=== PATIENT | male | born 1945 | race Caucasian/White ===

== ENCOUNTER → 2018-07-05 06:35 | Day surgery (SDC) | payer MEDICARE, SELFPAY ==
[2018-07-05 06:57] VITALS: BMI 33.7
--- NOTE | 2018-07-05 08:48 | CL.D_ITS ---
Patient Name: SVITLANA PARKER Study Date: 07/05/2018 Performing: Darinel Valiente MD Ht: 70 inches 177.8 cm : 1945 Wt: 234.99 lbs 106.59 kg Age: 73 Gender: male BSA: 2.24 PROCEDURE(S) PERFORMED [id number] CLINICAL PROFILE AND INDICATIONS Indications: Suspected CAD, Valvular Disease Heart Failure: None Stress/Imaging Date: 06/29/2018 CAD Presentations: Symptom unlikely to be ischemic. CONCLUSIONS Non obstructive coronary arteries RECOMMENDATIONS Medical therapy DESCRIPTION OF PROCEDURE The patient arrived to the procedure lab. The risks and benefits of the procedure as well as a full d escription of our services here and current unavailability of surgical backup were fully explained to the patient and/or their significant other prior to the catheterization. The Timeout was completed, verifying the correct patient and procedure. The patient's procedural site was prepped and draped in the usual fashion. Local anesthetic was given subcutaneously to right groin region with Lidocaine 2%. Using a modified Seldinger technique, arterial access was obtained via the right femoral artery, a 5 Fr sheath was inserted. Left Coronary Artery selective angiography was performed in multiple views u sing a 5 Fr. JL 5 catheter. Right Coronary Artery selective angiography was then performed in multipl e views using a 5 Fr. 3DRC (Abilio) catheter.Contrast was injected through the sheath and the Right Iliac and Femoral artery were assessed for possible closure device.The arterial sheath was pulled and a Mynx closure device was deployed for hemostasis CORONARY ANGIOGRAPHY DOMINANCE: Left Dominant LEFT HEART ASSESSMENT Left Ventricular Ejection Fraction: by Echo 74 % LEFT MAIN: Angiographically normal LEFT ANTERIOR DESCENDING ARTERY: Mild luminal irregularities less than 30% CIRCUMFLEX ARTERY: Mild luminal irregularities less than 30% RAMUS: No significant disease noted RIGHT CORONARY ARTERY: No significant disease noted VALVE FINDINGS: Bioprosthetic COMPLICATIONS No Complications PROCEDURE MEDICATIONS Versed 1 mg IV Versed 1 mg IV Oxygen: 2 L/min via nasal cannula SUMMARY OF HEMODYNAMIC DATA Time AIR REST ECG 06:57:09 AO 152/81 (104) SA 08:10:55 Signed By Darinel Valiente MD On 07/05/2018 08:47:43 Darinel Valiente MD
--- NOTE | 2018-07-05 09:40 | ECHOCS_ITS ---
Reason For Study: Aortic valve replacement, CAD, ABN stress Procedure This was a 2D Doppler, Color Flow transthoracic echocardiogram. The study was technically difficult. Contrast injection was performed. Exam performed portable in patient room. Left Ventricle Normal LV size. Left ventricular systolic function is normal. The estimated ejection fraction is 70 %. Stage 1 diastolic dysfunction. No regional wall motion abnormalities noted. Right Ventricle Normal RV size. Normal systolic function. Atria The left atrium is mildly enlarged. The right atrium is mildly enlarged. Mitral Valve Normal mitral valve. Tricuspid Valve Normal tricuspid valve. Mild to moderate (1-2+) tricuspid valve insufficiency. Pulmonary artery systolic pressure is 43 mmHg. Aortic Valve Peak aortic valve gradient 41 mmHg. Mean aortic valve gradient 24 mmHg. Calculated aortic valve area (continuity equation) is 1.2 cm2. Bioprosthetic aortic valve. Pulmonic Valve Normal pulmonic valve. Great Vessels Normal aortic root. The pulmonary artery is normal size. Normal inferior vena cava. Pericardium/Pleural No pericardial effusion. Medication Diluted definity 3.0ml given slow IV push to enhance endocardial definition. MMode/2D Measurements & Calculations LVIDd: 4.8 cm IVSd: 1.1 cm LVOT diam: 2.2 cm LVIDs: 2.8 cm LVPWd: 1.2 cm FS: 42.7 % LVOT area: 3.8 cm2 Ao root diam: 3.7 cm LAV(MOD-bp): 72.3 ml LA A4 area: 22.0 cm2 LAV(MOD-bp) Indexed: 32.3 ml/m2 LAV(MOD-sp2): 77.2 ml LAV(MOD-sp4): 64.3 ml LA dimension(2D): 5.0 cm RA A4 area: 23.1 cm2 Doppler Measurements & Calculations MV E max eryn: 130.6 cm/sec Ao V2 max: 321.8 cm/sec LV V1 max: 105.6 cm/sec Ao max P.4 mmHg LV V1 max P.5 mmHg Ao V2 mean: 237.7 cm/sec LV V1 mean P.5 mmHg Ao mean P.4 mmHg LV V1 mean: 75.1 cm/sec Ao V2 VTI: 80.8 cm LV V1 VTI: 26.2 cm JACKELINE(I,D): 1.2 cm2 JACKELINE(V,D): 1.2 cm2 SV(LVOT): 98.6 ml PA V2 max: 107.3 cm/sec TR max eryn: 314.3 cm/sec TR max P.5 mmHg Interpretation Summary Normal LV size. Left ventricular systolic function is normal. The estimated ejection fraction is 70 %. Stage 1 diastolic dysfunction. Mild to moderate (1-2+) tricuspid valve insufficiency. Mean aortic valve gradient 24 mmHg. Bioprosthetic aortic valve. Calculated aortic valve area (continuity equation) is 1.2 cm2. Contrast injection was performed. Ordering Physician: Darinel Valiente Referring Physician: Phoebe Beltran Performed By: Dorota Sabillon, RDCS, RVT
== END ==
PROVIDERS: Family Provider Internal Medicine; PCP Internal Medicine; Referring Provider Internal Medicine Cardiovascular Disease; Visit Provider Internal Medicine Cardiovascular Disease
DX: I25.10 Atherosclerotic heart disease of native coronary artery without angina pectoris (principal); E11.9 Type 2 diabetes mellitus without complications; E78.5 Hyperlipidemia, unspecified; I10 Essential (primary) hypertension; Q23.1 Congenital insufficiency of aortic valve; I50.30 Unspecified diastolic (congestive) heart failure
CPT/HCPCS: 93306; 93454; 99152; 99153; C1760; J7040; Q9957; A4216; C1769; C8929; Q9967

== ENCOUNTER → 2018-07-17 | Outpatient (CLI) | payer MEDICARE, SELFPAY ==
[2018-07-12 13:10] VITALS: BMI 34.2
== END | disposition home or self-care (01) ==
LOC: PSN 12:38
PROVIDERS: Family Provider Internal Medicine; PCP Internal Medicine; Referring Provider Internal Medicine Cardiovascular Disease; Visit Provider Internal Medicine Cardiovascular Disease
DX: I48.1 Persistent atrial fibrillation (principal)
CPT/HCPCS: 93225; 93226

== ENCOUNTER 2018-08-24 09:12 | Observation (INO) | payer MEDICARE, SELFPAY ==
[2018-07-12 13:10] VITALS: BMI 34.2
[2018-08-14 12:26] VITALS: BMI 34.2
--- NOTE | 2018-08-14 12:34 | RAD_ITS ---
STUDY: X-RAY CHEST REASON FOR EXAM: Male, 73 years old. Chronic atrial fibrillation. TECHNIQUE: PA and lateral views of the chest. COMPARISON: None. FINDINGS: Mild elevation of the right hemidiaphragm. Minimal increased markings at the left lung base suggestive of linear scarring and/or atelectasis. There is no demonstrated pleural abnormality. Sternal cerclage wires are present from a prior sternotomy. Prior mitral valve replacement. Normal mediastinum and matt. Normal visualized pulmonary arteries. There is atherosclerotic tortuosity of the aortic arch and descending thoracic aorta. There are diffuse degenerative changes of the visualized thoracic spine. Normal visualized ribs, clavicles, and shoulders. There is no demonstrated abnormality of the visualized soft tissue structures of the upper abdomen. RAD/Chest PA and Lateral IMPRESSION: Mild increased markings at the left lung base suggestive of linear atelectasis and/or scarring. Electronically Signed: Sanford Benitez, at 15:54 EDT , Service support ,
[2018-08-14 13:20] LABS: Hematocrit 41.9 % (40-54); Hemoglobin 13.9 g/dl (13.0-16.5); Mean Corp Hgb Conc 33.2 g/gl (32-36); Mean Corpuscular Hgb 32.4 pg (27.0-32.0); Mean Corpuscular Volume 97.7 fL (80-94); Mean Platelet Vol. 9.8 fl (6.2-12.0); Platelet Count 195 K/mm3 (150-450); RBC Distribution Width CV 13.4 % (11.6-14.6); RBC Distribution Width SD 47.5 fl (35.1-43.9); Red Blood Count 4.29 M/mm3 (4.6-6.2); White Blood Count 6.7 K/mm3 (4.4-11.0)
[2018-08-14 13:21] LABS: Scan Indicated on CBC? Y/N NO
[2018-08-14 13:25] LABS: Color, Urine Yellow (Yellow); Glucose, Dipstick Normal (Normal); Ketone-Dipstick Negative (Negative); Leukocyte Esterase-Dipstick Negative /ul (Negative); Nitrite-Dipstick Negative (Negative); Occult Blood-Urine Negative /ul (Negative); Protein-Dipstick Negative (Negative); Urine Bilirubin Dipstick Negative (Negative); Urine Clarity Clear (Clear); Urine Urobilinogen Normal (Normal)
[2018-08-14 13:44] LABS: Mucous, Urine 0 SEEN /hpf (<or=2+); Red Blood Cells-Urine 0 SEEN /hpf (0-5); Squamous Epithelial Cells - UA 0 SEEN /hpf (0-5); White Blood Cells 0 SEEN /hpf (0-5)
[2018-08-14 13:45] LABS: Bacteria RARE /hpf (None Seen)
[2018-08-14 13:48] LABS: International Normalized Ratio 1.4; Prothrombin Time (Protime)PT. 16.7 SECONDS (11.7-14.9)
[2018-08-14 14:08] LABS: Anion Gap 9 (5-15); BUN 12 mg/dL (7-18); BUN/Creat Ratio 10.1 RATIO (10-20); Calcium,Total 9.1 mg/dL (8.5-10.1); Chloride 102 mmol/L (98-107); Creatinine, Serum 1.19 mg/dL (0.70-1.30); EST Glomerular Filtration Rate 64 mL/min (>60); Est Glom Filt Rate - Afr Amer 77 mL/min (>60); Glucose 121 mg/dL (74-106); Potassium 4.1 mmol/L (3.5-5.1); Sodium Level 142 mmol/L (136-145)
[2018-08-22 08:36] VITALS: BMI 31.7
[2018-08-23] VITALS (15 sets, daily range): BP systolic 141–160; BP diastolic 79–101; PULSE 49–59; RESP 15–18; TEMP 36.1–37.4; O2SAT 95–99
--- NOTE | 2018-08-23 11:02 | PCM.HP.BLA ---
History and Physical Date of Admission: 08/23/18 [facility] History of Present Illness Details: This is a pleasant 73-year-old man with a history of minimal coronary artery disease, chronic persistent atrial fibrillation, and aortic valve replacement in 2009. He was recently referred to us for shortness of breath and underwent a cardiac catheterization on 07/05/2018 which demonstrated nonobstructive coronary arteries. An echocardiogram was performed on 07/05/2018 with demonstrated an ejection fraction of 70%, 1-2+ tricuspid regurgitation, stable bioprosthetic aortic valve with a mean gradient of 24 mmHg. The pulmonary systolic pressure was calculated at 43 mmHg. He denies chest, arm, jaw, or neck discomfort. His exercise tolerance is stable. He denies SOB. He denies symptoms of palpitations, lightheadedness, dizziness, near syncope, or syncopal episodes. He denies edema or claudication issues. He denies orthopnea, PND, fever, chills, blood in urine, blood in stool, myalgia, or unexplainable fatigue. Intake Intake Visit Reasons: PPM Insertion Allergies oxycodone HCl [From Percocet] Allergy (Verified 08/14/18 09:11) Other Vital Signs: See EMR [facility] Medical History (Updated 08/23/18 @ 10:53 by LARON Gomez) Bradycardia (Chronic) Sick sinus syndrome (Chronic) Secondary pulmonary arterial hypertension (Chronic) Chronic diastolic (congestive) heart failure (Chronic) Persistent atrial fibrillation (Chronic) Atherosclerosis of coronary artery of pechanga heart without angina pectoris (Chronic) Bicuspid aortic valve (Resolved) Non-rheumatic aortic stenosis (Chronic) Essential (primary) hypertension (Chronic) Hyperlipidemia (Chronic) Osteoarthritis (Chronic) Type 2 diabetes mellitus (Chronic) Surgical History (Updated 07/05/18 @ 17:37 by Vickie Gore) H/O aortic valve replacement (Resolved 01/25/10) History of appendectomy (Resolved) History of hand surgery (Resolved) History of left heart catheterization (Resolved 07/05/18) History of tonsillectomy and adenoidectomy (Resolved) Family History (Updated 06/29/18 @ 16:46 by Vickie Gore) Mother CVA (cerebral vascular accident) Diabetes Social History Smoking Status: Never smoker Assessment & Plan 1. Atrial fibrillation and flutter I48.91; I48.92 slow ventricular response Plan - LARON Gomez His 24-hour Holter monitor from June 2018 showed atrial fib/flutter at 100% of total scan. He continues to have slow ventricular rate with average heart rate noted to be 49 bpm after discontinuing beta-nhung. Because of the low ventricular rate, he will proceed with Micra pacemaker insertion. Most recent echocardiogram from June 2018 showed ejection fraction of 70%. 2. Sick sinus syndrome I49.5 Plan - LARON Gomez He will proceed with Micra pacemaker insertion. 3. Bradycardia R00.1 Plan - LARON Gomez His beta-nhung has been discontinued. Due to ongoing symptomatic bradycardia, he will proceed with Micra pacemaker insertion. 4. Atherosclerosis of pe[place]anga coronary artery of [place] heart without angina pectoris I25.10 Plan - LARON Gomez His most recent heart catheterization showed nonobstructive/mild coronary artery disease. Patient denies any chest pain, arm pain, jaw pain, neck pain, shortness of breather, or fatigue suggestive of angina at this time. We will continue to monitor. We will not make any medication regimen changes and will continue risk factor modification. 5. H/O aortic valve replacement Z95.2 AVR w/ ARAVIND-AVILA PERIMOUNT 23MM PERICARDIAL AORTIC BIOPROSTHESIS 01/25/10 Plan - LARON Gomez This appears stable based on previous echocardiogram completed in June 2018. Mean aortic valve gradient was noted with 24 mmHg and calculated aortic valve area was noted be 1.27 square. We will continue to monitor this through history, exam, and repeat echocardiogram as needed. 6. Essential (primary) hypertension I10 Plan - LARON Gomez Patient's blood pressure is well-controlled. We will continue to monitor. We will not make any medication regimen changes. Plan Detail Additional Comments - LARON Gomez Thank you for allowing us to participate in the patients plan of care, if you have any questions please do not hesitate to call. This note was generated using a voice recognition system and there may be incorrect words, spelling or punctuation that were not noted when reviewing the office note prior to saving. Coding Diagnoses Atrial fibrillation and flutter I48.91; I48.92 Sick sinus syndrome I49.5 Bradycardia R00.1 Atherosclerosis of pe[place] coronary artery of [place] heart without angina pectoris I25.10 Coronary Disease-Associated Artery/Lesion type: [place] artery H/O aortic valve replacement Z95.2 Essential (primary) hypertension I10 Coding Diagnoses Atrial fibrillation and flutter I48.91; I48.92 Sick sinus syndrome I49.5 Bradycardia R00.1 Atherosclerosis of [place] coronary artery of [place] heart without angina pectoris I25.10 Coronary Disease-Associated Artery/Lesion type: [place] artery H/O aortic valve replacement Z95.2 Essential (primary) hypertension I10 Supplemental Info Supplemental Information Heart catheterization from 07/05/2018: CORONARY ANGIOGRAPHY DOMINANCE: Left Dominant LEFT HEART ASSESSMENT Left Ventricular Ejection Fraction: by Echo 74 % LEFT MAIN: Angiographically normal LEFT ANTERIOR DESCENDING ARTERY: Mild luminal irregularities less than 30% CIRCUMFLEX ARTERY: Mild luminal irregularities less than 30% RAMUS: No significant disease noted RIGHT CORONARY ARTERY: No significant disease noted VALVE FINDINGS: Bioprosthetic Echocardiogram from 07/05/2018: Interpretation Summary Normal LV size. Left ventricular systolic function is normal. The estimated ejection fraction is 70 %. Stage 1 diastolic dysfunction. Mild to moderate (1-2+) tricuspid valve insufficiency. Mean aortic valve gradient 24 mmHg. Bioprosthetic aortic valve. Calculated aortic valve area (continuity equation) is 1.2 cm2. Contrast injection was performed. 24-hour Holter monitor from 07/17/2018: Average heart rate of 49 bpm in atrial flutter, minimum heart rate of 28 bpm and atrial fib/flutter, maximum heart rate of 1 9 9 bpm and atrial fib/flutter, ventricular ectopy comprising of 1.4% of total QRS complexes, longest R to R interval 2.4 seconds, 100% of scan of atrial fibrillation/flutter, and no ventricular tachycardia noted. Diagnostics Electrocardiogram 08/14/18 Echocardiogram 07/05/18 Pacemaker Check 08/14/18 Cardiac Catheterization 07/05/18 Chest X-Ray 08/14/18
--- NOTE | 2018-08-23 16:35 | PCM.OP.PRO ---
Problem List (1) Sick sinus syndrome Status: Chronic (2) Atrial fibrillation and flutter Status: Chronic Comment: slow ventricular response Procedure Report Date of Procedure: 08/23/18 Implantation of a single-chamber Micra device. Indication: Atrial fibrillation with a slow ventricular response rate. Procedure: Patient was brought to the cardiac catheterization lab in the postabsorptive nonsedated state. After informed consent was obtained 1% Xylocaine was used to anesthetize the right femoral area. The patient was given sedation with Versed as well as fentanyl. Using ultrasound guidance the right femoral vein was accessed. Serial dilation was performed after a 7 Icelandic sheath was placed. A [employer] dilator was then used to dilate the access site. The equipment was then prepared and a large 27 Icelandic sheath with a silicone oil coated dilator was then introduced with a wire positioned in the superior vena cava. The device equipment on the 105 cm long catheter was then inserted after 5000 units of intravenous heparin was administered and continuous heparinized saline flush through the device port. Under fluoroscopic guidance the micra delivery catheter containing the micra-pacing capsule was advanced under fluoroscopic control to the right ventricular septum. Contrast was injected to ascertain adequate position. The micro device was then deployed. Device measurements were then obtained with an R wave detected at 18.3 mV, pacing impedance of 760 ohms. The pacing threshold was 0.5 V at 0.24 ms. The tether was then cut and the entire delivery device removed. A figure of 8 over the entry site was used to secure hemostasis. Patient tolerated the procedure well. The patient was transferred out of the catheterization lab in stable condition. Conclusion: Successful implantation of a single-chamber transcatheter Micra-pacing system.
[2018-08-23 18:21] LABS: Bedside Glucose 89 mg/dL (70-110)
[2018-08-23] MEDS: fentaNYL 100 MCG/2 ML Ampul 25 MCG IV (19:07)
[2018-08-23] MEDS: 0.9% NaCl Peripheral Flush Adult/Peds IV (19:08)
[2018-08-23] MEDS: Atorvastatin Calcium 20 MG Tablet PO (21:07)
[2018-08-23] MEDS: Lisinopril 20 MG Tablet PO (21:07)
[2018-08-24 03:00] VITALS: PULSE 49
[2018-08-24 03:49] VITALS: BP 141/82; PULSE 50; RESP 18; TEMP 36.6; O2SAT 94
[2018-08-24 07:26] VITALS: PULSE 50
[2018-08-24 08:12] VITALS: BP 143/84; PULSE 50; RESP 17; TEMP 36.6; O2SAT 97
[2018-08-24] MEDS: Lisinopril 20 MG Tablet PO (08:17)
[2018-08-24] MEDS: Furosemide 40 MG Tablet PO (08:17)
[2018-08-24] MEDS: Aspirin E.C. 81 MG Tablet PO (08:17)
--- NOTE | 2018-08-24 09:13 | DCINST_ITS ---
Discharge Diet: No Restrictions - You may continue your normal diet. Lifting Restrictions: 10 pounds and also avoid any pushing or pulling for 3 days after your test. Additional Activity Instructions:: You must have someone drive you home. Do not drive until instructed by your doctor. You must have someone stay with you all night after your test. Rest in bed or on the couch until the next morning. Limit the number of times you go up and down stairs the day of your test. Apply pressure to the puncture site if you sneeze or cough. Call your doctor if your incision/area has: Increased Pain/ Swelling, Increased Redness, Foul Smelling Discharge, Swelling at the incision site Call your doctor if you observe: Fever of 101 or Higher Additional Dressing/Incision Instructions:: Keep the dressing (bandage) on until the next morning. You may then shower, but do not take a tub bath for 5 days after your test. It is normal to have some tenderness and discomfort at the puncture site. Sometimes bruising also occurs. However, if pain, numbness, or coldness occurs below the puncture site (in your leg, toes, arms or fingers) call your doctor at once. You may have a small, marble sized knot at the puncture site. This is normal. Do not rub it. It will go away in 4-6 weeks. Bleeding can occur from the area where the puncture was done. Blood may spurt or drip from the site. If blood spurts, apply pressure right away to stop bleeding and call 911. Although rare, bleeding into the tissue (hematoma) can also occur. If this happens, a large, firm area goose egg under the skin will appear. If any of these occur, lie down as flat as you can and have someone apply firm pressure to the cath site with a gauze pad or a clean washcloth for 10-15 minutes. Call 911 or go to the Emergency Department. Allergies/Adverse Reactions: Allergies oxycodone HCl [From Percocet] Allergy (Verified 08/14/18 09:11) Other GET SWEATY, DON'T FEEL GOOD Medications to take at Discharge apixaban 5 mg tablet 5 mg PO BID 06/29/18 aspirin 81 mg tablet,delayed release 81 mg PO DAILY 06/29/18 atorvastatin 20 mg tablet 20 mg PO QHS 90 Days #90 tab 06/29/18 sildenafil (antihypertensive) 20 mg tablet 20 mg PO DAILY tab 06/29/18 furosemide 40 mg tablet 40 mg PO DAILY #60 tab 07/12/18 lisinopril 20 mg tablet 20 mg PO BID 90 Days #180 tab 07/25/18 metformin ER 500 mg tablet,extended release 24 hr 500 mg PO BID 90 Days #180 tab 08/14/18 omeprazole 20 mg capsule,delayed release 20 mg PO DAILY PRN 90 Days #90 cap 08/14/18 Primary Care Physician: Phoebe Beltran MD [Primary Care Provider] - Test Results: Test results from this visit will be discussed in further detail at your follow- up appointment, if applicable. Please Follow Up With: [facility] 09/03/2018 at 1:30 pm Proposed Discharge Date: 08/24/18 Cardiac Rehabilitation Info Cardiac Rehabilitation Program Information: Cardiac Rehabilitation is important for patients like you who are recovering from a heart problem. Cardiac rehabilitation programs are recognized as integral to the continued care of the patient with coronary heart disease. The cardiac rehabilitation program is designed to optimize a patient's physical, psychological, and social functioning. Health resident caregiver work in cardiac rehabilitation programs and assist you with getting the treatments you need to get stronger and healthier - like exercise, healthy eating habits, and medications. Cardiac rehabilitation has been show to help people with heart problems live longer and have better life enjoyment than people who do not go to cardiac rehabilitation. Please contact the Cardiac Rehabilitation Program at [facility] at in two weeks if you have not heard from them.
== END 2018-08-24 09:14 | disposition home or self-care (01) ==
LOC: CLSP 10:56 → PCU 08-27 09:19
PROVIDERS: Admitting Provider Internal Medicine Cardiovascular Disease; Family Provider Internal Medicine; PCP Internal Medicine; Referring Provider Internal Medicine Cardiovascular Disease; Visit Provider Internal Medicine Cardiovascular Disease
DX: Z45.018 Encounter for adjustment and management of other part of cardiac pacemaker (principal); I48.92 Unspecified atrial flutter; I48.2 Chronic atrial fibrillation; I49.5 Sick sinus syndrome; I25.10 Atherosclerotic heart disease of native coronary artery without angina pectoris; I48.1 Persistent atrial fibrillation; E78.5 Hyperlipidemia, unspecified; E11.9 Type 2 diabetes mellitus without complications; M19.90 Unspecified osteoarthritis, unspecified site; I11.0 Hypertensive heart disease with heart failure; I50.32 Chronic diastolic (congestive) heart failure; I27.20 Pulmonary hypertension, unspecified; Z95.2 Presence of prosthetic heart valve; Z79.899 Other long term (current) drug therapy; Z79.82 Long term (current) use of aspirin; Z79.01 Long term (current) use of anticoagulants; Z79.84 Long term (current) use of oral hypoglycemic drugs
CPT/HCPCS: 33274; 36415; 71046; 76937; 80048; 81001; 82962; 85027; 85610; 96374; 99152; 99153; 99218; C1894; J7040; Q9967; A4216; C1769; G0378; G0379

== ENCOUNTER 2018-12-02 02:17 | Emergency (ER) | payer MEDICARE, SELFPAY ==
[2018-11-15 13:16] VITALS: BMI 32.7
[2018-12-02 02:18] VITALS: BP 149/105; PULSE 63; RESP 18; TEMP 37; O2SAT 98; BMI 34.3
--- NOTE | 2018-12-02 02:19 | CT_ITS ---
HISTORY: FALL,HEMATOMA AND LACERATION TO RT POSTERIOR TOP OF HEAD,ELEVATED BP,TAKES BLOOD THINNER HX:HTN,DIABETES,A-FIB,HLD,PACEMAKER EXAMINATION: CT Head or Brain W/O IV Contrast TECHNIQUE: Multiple axial images were obtained of the head without intravenous contrast. A radiation dose optimization technique was used for this scan. IV Contrast dosage and agent: None. COMPARISON: None FINDINGS: Giant cisterna magna, a developmental variant. No hydrocephalus. Moderate cerebral cortical atrophy. No intracranial mass, hemorrhage, or acute intracranial abnormality. No suspicious extra-axial fluid collection. Carotid and vertebrobasilar atherosclerotic calcifications. The calvarium appears intact. No fracture seen. Surgical dressing in place at the right parietal scalp. As visualized, the mastoids are clear. Pansinusitis with paranasal sinus mucosal thickening. CT/Brain/Head without Contrast IMPRESSION: 1. Negative for intracranial hemorrhage or acute intracranial disease. 2. Moderate cerebral cortical atrophy. 3. Pansinusitis. Individualized dose optimization techniques were used for this CT. at 0300 Reported and signed by: Savage Romero MD Electronically Signed: Savage Romero, at 2:59 EDT Tel , Service support ,
[2018-12-02 02:21] VITALS: O2SAT 98
--- NOTE | 2018-12-02 02:21 | ED.VIS.GEN ---
History of Present Illness Chief Complaint: Fall Informant: Patient Onset: Today Context: Gradual Onset Timing: Continuous Current Severity: Mild Maximum Severity: Mild Narrative: The patient presents to the emergency department with head trauma. He states he was watching the [employer] game [employer]. He has been drinking. He lost his balance and fell. He struck his head but does not think he lost consciousness. He did suffer a laceration to the right scalp. He is on Eliquis for history of atrial fibrillation. He denies nausea or vomiting. He denies other injury. He is otherwise been in his normal state of health. Prior similar symptoms: No Recent Illness/Hospitalization: No Past Medical History - Allergies and Home Meds Allergies/Adverse Reactions: Allergies oxycodone HCl [From Percocet] Allergy (Verified 12/02/18 02:21) Other GET SWEATY, DON'T FEEL GOOD Primary Care Physician: Phoebe Beltran MD [Primary Care Provider] - 10 Day for suture removal Prior records reviewed: Yes Past Medical History: - - A. fib on anticoagulants Smoking Status: Never smoker Review of Systems General: Denies: Chills, Fever, Sweats Eyes: Denies: Visual changes - bilaterally, Diplopia ENT: Denies: Rhinorrhea, Sore throat Cardiovascular: Denies: Chest pain, Palpitations Respiratory: Denies: Dyspnea, Cough, Dyspnea on exertion Gastrointestinal: Denies: Abdominal pain, Nausea, Vomiting, Diarrhea, Melena, Hematochezia Genitourinary: Denies: Dysuria, Hematuria, Frequency Musculoskeletal: Denies: Back pain, Extremity Pain Skin: Denies: Rash, Wounds Neurological: Denies: Headache, Weakness, Numbness Physical Exam Vital Signs/Narrative: Vital Signs Temp Pulse Resp BP Pulse Ox 12/02/18 02:18 98.6 F 63 18 149/105 H 98 Inital Vital Signs reviewed: Yes General: Well nourished, Well developed, No Acute Distress Head: Normocephalic, Trauma - Patient has a 1 cm laceration on the right parietal area. No step-off. Eyes: Perrl, EOMI ENT: Moist mucous membranes, No rhinorrhea Neck: Supple, Nontender Cardiovascular: Regular rate, Regular rhythm, No murmurs Respiratory: No distress, CTA bilaterally, Chest nontender Abdomen: Soft, Nontender, Nondistended, Normal bowel sounds Back: Nontender, Normal Inspection Extremities: Nontender, No edema Skin: Normal color, No rash Neurological: Alert, Oriented x3, Cranial nerves II-XII grossly intact, Normal Strength, Normal Sensation Psychological: Normal affect, Normal Mood Diagnostic/Tx/Re-eval Clinical Impression(s) from Imaging Studies Brain CT 12/02/18 02:19 IMPRESSION: 1. Negative for intracranial hemorrhage or acute intracranial disease. 2. Moderate cerebral cortical atrophy. 3. Pansinusitis. Individualized dose optimization techniques were used for this CT. at 0300 Reported and signed by: Savage Romero MD Electronically Signed: Savage Romero, at 2:59 EDT Tel , Service support , - Medical Decision Making Procedure note: Let was applied topically. 3 cc of lidocaine with epinephrine was injected locally. The wound was irrigated and cleaned copiously with chlorhexidine. There was no gross contamination. The wound edges were well approximated. The wound was closed with 3 kaitlin. The patient tolerated this without issue. The patient presented to the emergency department after a fall. He did strike his head and is on Eliquis. I did obtain a CT which showed no evidence of bleeding or fracture. His wound was closed with kaitlin. He tolerated this without issue. He has a normal neurologic examination. He is resting comfortably. He is a steady gait. At this point, the patient be discharged home. Impression 1. 2 cm scalp laceration with staple repair ED Disposition - Plan for ED Patient: Instructions: LACERATION, Scalp Referrals: Phoebe Beltran MD [Primary Care Provider] - 10 Day for suture removal
[2018-12-02] MEDS: Lidocaine/Epi/Tetracaine 50 ML 1 APPLIC TOPICAL (02:28)
[2018-12-02 02:44] VITALS: RESP 18
== END 2018-12-02 04:05 | disposition home or self-care (01) ==
PROVIDERS: Emergency Provider Emergency Medicine; Family Provider Internal Medicine; PCP Internal Medicine
DX: S01.01XA Laceration without foreign body of scalp, initial encounter (principal); I48.91 Unspecified atrial fibrillation; Z79.02 Long term (current) use of antithrombotics/antiplatelets; W18.30XA Fall on same level, unspecified, initial encounter; Y93.89 Activity, other specified; Y92.89 Other specified places as the place of occurrence of the external cause; Y99.8 Other external cause status
CPT/HCPCS: 12001; 70450; 99285

== ENCOUNTER → 2020-03-26 10:24 | Outpatient (CLI) | payer MEDICARE, SELFPAY ==
[2020-03-26 08:36] VITALS: BMI 33.3
[2020-03-26 11:42] LABS: AST(SGOT) 29 U/L (15-37); Alanine Aminotransfer ALT/SGPT 46 U/L (16-61); Albumin, Serum 3.6 g/dL (3.2-5.0); Alkaline Phosphatase 57 U/L (45-117); Anion Gap 6 (5-15); BUN 12 mg/dL (7-18); BUN/Creat Ratio 9.8 RATIO (10-20); Bilirubin, Direct 0.16 mg/dL (0.00-0.30); Calcium,Total 9.1 mg/dL (8.5-10.1); Chloride 101 mmol/L (98-107); Cholesterol 167 mg/dL (200); Creatinine, Serum 1.22 mg/dL (0.70-1.30); EST Glomerular Filtration Rate 62 mL/min (>60); Est Glom Filt Rate - Afr Amer 75 mL/min (>60); Globulin 3.9 g/dL (2.2-4.2); Glucose 219 mg/dL (74-106); High Density Lipoprotein 51 mg/dL; Potassium 4.4 mmol/L (3.5-5.1); Protein, Total 7.5 g/dL (6.4-8.2); Sodium Level 138 mmol/L (136-145); Triglycerides 167 mg/dL; Very Low Density Lipoprotein 33 mg/dL (5-40)
== END ==
LOC: LAB 10:26 → LAB.FUTURE 10:36
PROVIDERS: PCP Internal Medicine; Referring Provider Internal Medicine Cardiovascular Disease; Visit Provider Internal Medicine Cardiovascular Disease
DX: I25.10 Atherosclerotic heart disease of native coronary artery without angina pectoris (principal); E78.5 Hyperlipidemia, unspecified; Z95.2 Presence of prosthetic heart valve
CPT/HCPCS: 36415; 80048; 80061; 80076

== ENCOUNTER → 2020-04-13 13:21 | Outpatient (CLI) | payer MEDICARE, SELFPAY ==
[2020-03-26 08:36] VITALS: BMI 33.3
--- NOTE | 2020-04-13 13:26 | ECHOCS_ITS ---
Reason For Study: Valve Replacement Eval Procedure This was a 2D Doppler, Color Flow transthoracic echocardiogram. Contrast injection was performed. Exam performed in department. Left Ventricle Normal LV size. Mild concentric left ventricular hypertrophy. Left ventricular systolic function is normal. The estimated ejection fraction is 60 %. No regional wall motion abnormalities noted. Right Ventricle Normal RV size. ICD or pacer leads identified within the right ventricle. Normal systolic function. Atria The left atrium is moderately enlarged. Normal right atrium. Mitral Valve Normal mitral valve. Tricuspid Valve Normal tricuspid valve. Mild (1+) tricuspid valve insufficiency. Pulmonary artery systolic pressure is 44 mmHg. Aortic Valve Peak aortic valve gradient 38 mmHg. Mean aortic valve gradient 23 mmHg. Bioprosthetic aortic valve. Great Vessels Normal aortic root. Pericardium/Pleural No pericardial effusion. Medication Diluted definity 3ml given slow IV push to enhance endocardial definition. MMode/2D Measurements & Calculations LVIDd: 4.5 cm IVSd: 1.6 cm LVOT diam: 2.1 cm LVIDs: 2.7 cm LVPWd: 1.2 cm LVOT area: 3.5 cm2 RVDd: 4.4 cm FS: 40.2 % Ao root diam: 3.3 cm LAV(MOD-bp): 64.6 ml LVAd ap4: 27.9 cm2 LAV(MOD-bp) Indexed: 28.9 ml/m2 EDV(MOD-sp4): 82.8 ml LAV(MOD-sp2): 42.6 ml EDV(sp4-el): 84.5 ml LAV(MOD-sp4): 86.8 ml LVAs ap4: 17.2 cm2 ESV(MOD-sp4): 35.7 ml ESV(sp4-el): 36.0 ml EF(MOD-sp4): 56.9 % EF(sp4-el): 57.4 % SV(MOD-sp4): 47.2 ml SV(sp4-el): 48.5 ml LA A4 area: 26.3 cm2 LA dimension(2D): 4.5 cm RA A4 area: 23.2 cm2 Doppler Measurements & Calculations MV E max eryn: 94.4 cm/sec Ao V2 max: 309.2 cm/sec LV V1 max: 111.2 cm/sec Ao max P.3 mmHg LV V1 max P.0 mmHg Ao V2 mean: 231.5 cm/sec LV V1 mean P.6 mmHg Ao mean P.5 mmHg LV V1 mean: 75.6 cm/sec Ao V2 VTI: 64.9 cm LV V1 VTI: 22.4 cm JACKELINE(I,D): 1.2 cm2 JACKELINE(V,D): 1.3 cm2 SV(LVOT): 78.7 ml PA V2 max: 93.4 cm/sec TR max eryn: 317.3 cm/sec TR max P.3 mmHg Interpretation Summary Normal LV size. Mild concentric left ventricular hypertrophy. Left ventricular systolic function is normal. The estimated ejection fraction is 60 %. The left atrium is moderately enlarged. Pulmonary artery systolic pressure is 44 mmHg. Mean aortic valve gradient 23 mmHg. Ordering Physician: Darinel Valiente Referring Physician: Phoebe Beltran Performed By: Milena Butler RDCS, RVT
== END ==
LOC: CVS 13:25
PROVIDERS: PCP Internal Medicine; Referring Provider Internal Medicine Cardiovascular Disease; Visit Provider Internal Medicine Cardiovascular Disease
DX: Z95.2 Presence of prosthetic heart valve (principal)
CPT/HCPCS: 93306; Q9957; A4216; C8929

== ENCOUNTER 2021-05-27 13:35 | Outpatient (CLI) | payer MEDICARE, OTHER, SELFPAY ==
--- NOTE | 2021-05-27 13:40 | ECHOCS_ITS ---
Reason For Study: DYSPNEA/SOB Procedure This was a 2D Doppler, Color Flow transthoracic echocardiogram. The study was technically difficult. Due to body habitus. Contrast injection was performed. Exam performed in department. Left Ventricle Normal LV size. Left ventricular systolic function is normal. The estimated ejection fraction is 65 %. No regional wall motion abnormalities noted. Right Ventricle Normal RV size. Normal systolic function. Atria The left atrium is moderately enlarged. The right atrium is moderately enlarged. Tricuspid Valve Normal tricuspid valve. Mild (1+) tricuspid valve insufficiency. Pulmonary artery systolic pressure is 36 mmHg. Aortic Valve Peak aortic valve gradient 36 mmHg. Mean aortic valve gradient 22 mmHg. Stable appearing bioprosthetic aortic valve apparatus. Pericardium/Pleural No pericardial effusion. Medication 22 gauge I.V. with prn adaptor inserted into right arm. Diluted definity 2.5ml given slow IV push to enhance endocardial definition. MMode/2D Measurements & Calculations LVIDd: 4.6 cm IVSd: 1.3 cm LVOT diam: 2.1 cm LVIDs: 2.9 cm LVPWd: 1.1 cm LVOT area: 3.4 cm2 RVDd: 4.1 cm FS: 37.7 % Ao root diam: 3.7 cm LAV(MOD-bp): 88.5 ml LA A4 area: 26.3 cm2 LAV(MOD-bp) Indexed: 40.9 ml/m2 LAV(MOD-sp2): 77.3 ml LAV(MOD-sp4): 95.0 ml LA dimension(2D): 4.8 cm RA A4 area: 27.6 cm2 Time Measurements MV dec time: 0.16 sec Doppler Measurements & Calculations MV E max eryn: 104.1 cm/sec Ao V2 max: 301.5 cm/sec LV V1 max: 138.6 cm/sec MV A max eryn: 33.1 cm/sec Ao max P.4 mmHg LV V1 max P.7 mmHg MV E/A: 3.1 Ao V2 mean: 225.9 cm/sec LV V1 mean P.2 mmHg Ao mean P.3 mmHg LV V1 mean: 97.5 cm/sec Ao V2 VTI: 66.2 cm LV V1 VTI: 32.4 cm JACKELINE(I,D): 1.7 cm2 JACKELINE(V,D): 1.6 cm2 SV(LVOT): 110.3 ml PA V2 max: 117.2 cm/sec TR max eryn: 285.8 cm/sec TR max P.7 mmHg ECHO/Echo Complete W/ Contrast Interpretation Summary Normal LV size. Left ventricular systolic function is normal. The estimated ejection fraction is 65 %. The left atrium is moderately enlarged. The right atrium is moderately enlarged. Mild (1+) tricuspid valve insufficiency. Pulmonary artery systolic pressure is 36 mmHg. Contrast injection was performed. Ordering Physician: Edith Hugo Referring Physician: Phoebe Beltran Performed By: Dorota Sabillon, HERBER, RVT
== END 2021-05-27 23:59 | disposition home or self-care (01) ==
LOC: CVS 13:37
PROVIDERS: PCP Internal Medicine; Referring Provider Physician Assistant Medical; Visit Provider Physician Assistant Medical
DX: I35.0 Nonrheumatic aortic (valve) stenosis (principal); R06.02 Shortness of breath
CPT/HCPCS: 93306; Q9957; A4216; C8929

== ENCOUNTER → 2021-11-08 | Outpatient (CLI) | payer MEDICARE, OTHER, SELFPAY ==
--- NOTE | 2021-11-08 14:50 | RAD_ITS ---
STUDY: X-RAY CHEST REASON FOR EXAM: Male, 76 years old. Cough TECHNIQUE: PA and lateral views of the chest. COMPARISON: 08/14/2018 FINDINGS: Status post heart valve replacement surgery. Alveolar opacity in the lower left lung consistent with left lower lobe pneumonia. Slightly elevated right hemidiaphragm which is unchanged. Normal size heart. Normal mediastinum and matt. Normal visualized pulmonary arteries. Normal visualized aortic arch and descending thoracic aorta. Normal visualized thoracic spine. Normal visualized ribs, clavicles, and shoulders. There is no demonstrated abnormality of the visualized soft tissue structures of the upper abdomen. RAD/Chest PA and Lateral IMPRESSION: Left lower lobe pneumonia. Electronically Signed: Gerber Sosa MD at 17:00 EDT ,
== END | disposition home or self-care (01) ==
LOC: RAD 14:46
PROVIDERS: PCP Internal Medicine; Referring Provider Nurse Practitioner Gerontology; Visit Provider Nurse Practitioner Gerontology
DX: R05.9 Cough, unspecified (principal)
CPT/HCPCS: 71046

== ENCOUNTER → 2021-11-11 | Outpatient (CLI) | payer MEDICARE, OTHER, SELFPAY ==
--- NOTE | 2021-11-11 08:44 | CDU_ITS ---
Reason For Study: Dizziness Rt. Velocities/BP Lt. Velocities/BP Prox CCA 46.6/10.7 cm/sec. Prox CCA 85.3/11.6 cm/sec. Mid CCA 49.4/13.5 cm/sec. Mid CCA 64.5/10.7 cm/sec. Dist CCA 42.8/11.6 cm/sec. Dist CCA 57/11.6 cm/sec. Prox ICA 42.9/13.7 cm/sec. Prox ICA 34.3/11.6 cm/sec. Mid ICA 53.6/16.6 cm/sec. Mid ICA 44.7/17.3 cm/sec. Dist ICA 65.7/23.8 cm/sec. Dist ICA 53.3/18.1 cm/sec. Rt. ICA/CCA = 1.41. Lt. ICA/CCA = 0.83. Prox ECA 35.2/9.7 cm/sec. Prox ECA 43.7/4.1 cm/sec. Rt. Vert. 37.8/11.6 cm/sec. Lt. Vert. 33.3/10.2 cm/sec. Right Extracranial There is homogeneous, smooth atherosclerotic plaque noted in the right common carotid artery. There is homogeneous, smooth atherosclerotic plaque noted in the right internal carotid artery. There is intimal thickening but no significant atherosclerotic plaque noted in the right external carotid artery. Antegrade flow is noted in the right vertebral artery. Left Extracranial There is homogeneous, smooth atherosclerotic plaque noted in the left common carotid artery. There is intimal thickening but no significant atherosclerotic plaque noted in the left internal carotid artery. There is intimal thickening but no significant atherosclerotic plaque noted in the left external carotid artery. Antegrade flow is noted in the left vertebral artery. Procedure Carotid Duplex [id number]. This is a Carotid Duplex examination using B-mode, color flow and specral Doppler. Exam performed in department. VL/Carotid Duplex Ultrasound Interpretation Summary Mild (<50%) stenosis right extracranial internal carotid. Mild (<50%) stenosis left extracranial internal carotid. Patent and antegrade vertebrals bilaterally. Ordering Physician: Claudette Farooq Referring Physician: Phoebe Beltran Performed By: Chely Connelly RVT
== END | disposition home or self-care (01) ==
LOC: CVS 08:44
PROVIDERS: PCP Internal Medicine; Referring Provider Nurse Practitioner Gerontology; Visit Provider Nurse Practitioner Gerontology
DX: I65.23 Occlusion and stenosis of bilateral carotid arteries (principal); R42 Dizziness and giddiness
CPT/HCPCS: 93880

== ENCOUNTER 2022-11-28 11:04 | Emergency (ER) | payer MEDICARE, OTHER, SELFPAY ==
[2022-11-28 11:06] VITALS: BP 178/107; PULSE 65; RESP 14; TEMP 35.9; O2SAT 100; BMI 28.3
[2022-11-28 12:13] VITALS: BP 164/105; PULSE 61; RESP 23
--- NOTE | 2022-11-28 12:37 | CT_ITS ---
STUDY: CT BRAIN WITHOUT CONTRAST REASON FOR EXAM: Male, 77 years old. Confusion. Dizziness. Recent medication changes. RADIATION DOSAGE (If Supplied By Facility): CTDIvol = ( 47.06 ) mGy, DLP = ( 907.97 ) mGycm TECHNIQUE: Transaxial CT imaging of the brain was performed without administration of intravenous contrast material. Individualized dose optimization techniques were used for this CT. COMPARISON: Comparison is made with prior study dated December 02, 2018. FINDINGS: Normal soft tissue structures. Normal calvarium. There is mild cerebral atrophy with widening of the extra-axial spaces and ventricular dilatation. There are areas of decreased attenuation within the white matter tracts of the supratentorial brain, consistent with microvascular disease changes. Normal basal ganglia and thalami. Normal brainstem. Normal cerebellum. There is no intracranial hemorrhage. There are no findings of an acute ischemic infarction. Atherosclerotic calcification of the vertebral arteries and cavernous portions of the internal carotid arteries bilaterally. Partial opacification of the maxillary sinuses bilaterally. Mucosal thickening and partial opacification of the ethmoid sinuses. CT/Brain/Head without Contrast IMPRESSION: Chronic involutional changes of the brain. Sinusitis. Electronically Signed: Sanford Benitez MD at 14:10 EDT ,
--- NOTE | 2022-11-28 12:37 | EKG12_ITS ---
Test Reason : HTN Blood Pressure : / mmHG Vent. Rate : 060 BPM Atrial Rate : 357 BPM P-R Int : 000 ms QRS Dur : 174 ms QT Int : 508 ms P-R-T Axes : 000 060 089 degrees QTc Int : 508 ms Ventricular-paced rhythm Abnormal ECG Confirmed by ISSAC VASQUEZ, OPHELIA ([id number]), video editor RENEE ELLISON ([id number]) on 12/02/2022 2:30:38 PM Referred By: ALEXA/ABRAHAN Confirmed By:OPHELIA DAVENPORT MD
[2022-11-28 12:57] LABS: Bacteria 0 SEEN /hpf (None Seen); Mucous, Urine 0 SEEN /hpf (<or=2+); Red Blood Cells-Urine 0 SEEN /hpf (0-5); Squamous Epithelial Cells - UA 0 SEEN /hpf (0-5); White Blood Cells 0 SEEN /hpf (0-5)
[2022-11-28 13:07] LABS: Color, Urine Straw (Yellow); Glucose, Dipstick Normal (Normal); Ketone-Dipstick Negative (Negative); Leukocyte Esterase-Dipstick Negative /ul (Negative); Nitrite-Dipstick Negative (Negative); Occult Blood-Urine Negative /ul (Negative); Protein-Dipstick Negative (Negative); Urine Bilirubin Dipstick Negative (Negative); Urine Clarity Clear (Clear); Urine Urobilinogen Normal (Normal)
--- NOTE | 2022-11-28 13:07 | NURSING ---
NO OLD EKGS
[2022-11-28 13:10] VITALS: BP 171/98; PULSE 62; RESP 17
[2022-11-28 13:17] LABS: Absolute Lymphocyte Count 0.88 X10^3/uL (0.83-4.51); Absolute Neutrophil Count 4.3 X10^3/uL (2.0-7.7); Basophil# 0.05 X10^3/uL; Basophil% 0.9 % (0-1); Eosinophils% 1.7 % (0-5); Hemoglobin 13.6 g/dL (13.0-16.5); Lymphocyte # 0.88 X10^3/ul (0.83-4.51); Mean Corp Hgb Conc 33.2 g/dL (32-36); Mean Corpuscular Hgb 33.8 pg (27.0-32.0); Mean Platelet Vol. 9.8 fl (6.2-12.0); Monocyte# 0.51 X10^3/uL; Monocyte% 8.7 % (0-10); NRBC Flagged by Analyzer 0 % (0-5); Neutrophil # 4.28 X10^3/uL (2.7-7.7); Neutrophil % 73.2 % (47-70); Platelet Count 163 K/mm3 (150-450); RBC Distribution Width CV 12.9 % (11.6-14.6); RBC Distribution Width SD 48.3 fl (35.1-43.9); Red Blood Count 4.02 M/mm3 (4.6-6.2); White Blood Count 5.9 K/mm3 (4.4-11.0)
[2022-11-28 13:33] LABS: AST(SGOT) 46 U/L (15-37); Alanine Aminotransfer ALT/SGPT 52 U/L (16-61); Albumin, Serum 3.6 g/dL (3.2-5.0); Alkaline Phosphatase 82 U/L (45-117); Anion Gap 7 (5-15); BUN 13 mg/dL (7-18); BUN/Creat Ratio 9.6 RATIO (10-20); Calcium,Total 8.9 mg/dL (8.5-10.1); Chloride 103 mmol/L (98-107); Creatinine, Serum 1.35 mg/dL (0.70-1.30); EST Glomerular Filtration Rate 55 mL/min (>60); Est Glom Filt Rate - Afr Amer 66 mL/min (>60); Estimated Creatinine Clearance 49.58 ml/min; Globulin 3.5 g/dL (2.2-4.2); Glucose 121 mg/dL (74-106); Lipase 41 U/L (13-75); Potassium 3.9 mmol/L (3.5-5.1); Protein, Total 7.1 g/dL (6.4-8.2); Sodium Level 142 mmol/L (136-145)
--- NOTE | 2022-11-28 14:02 | EDS_ITS ---
HPI History of Present Illness Chief Complaint: Hypertension Informant: patient Narrative Narrative: Patient is a 77-year-old male with history of bicuspid aortic valve status post repair in 2009, persistent atrial fibrillation, sick sinus syndrome status post pacemaker, diastolic heart failure, hypertension, hyperlipidemia and regular alcohol use presenting with elevated blood pressure readings as well as ongoing episodes of confusion and unsteadiness. No reported falls. 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 The following day his nurse practitioner also increased his escitalopram level. They are not sure some the symptoms are associated with these medication changes however symptoms seem to have preceded this medication changes. His significant other is at the bedside (she does not live with him) notes that he was more confused this weekend. Seems more unsteady. On Monday, 3 days ago, he states he just was not feeling well but had no specific complaints. They were going further monthly pedicures and when she pulled and he did not know where they were at which is unusual for him. Patient did have an MRI in February of this year for his memory/confusion which was fine. In addition his blood pressures been more elevated. Yesterday it was 173/100. Patient states she is otherwise quite healthy and walks 1.5 miles per day. He notes that lately has been starting to dizzy with walking. He does drink 6-7 alcoholic drinks per day and has no interest in stopping. He mixture of liquor and beer. He denies any shortness of breath, leg swelling, chest discomfort, numbness or tingling. No other complaints at this time. Currently has no physical complaints. [facility] Medical History Bicuspid aortic valve Bradycardia Chronic diastolic (congestive) heart failure COVID-19 virus detected (12/2019) Essential (primary) hypertension Hyperlipidemia Non-rheumatic aortic stenosis Nonobstructive atherosclerosis of coronary artery Osteoarthritis Persistent atrial fibrillation Secondary pulmonary arterial hypertension Sick sinus syndrome Type 2 diabetes mellitus Home Medications atorvastatin 20 mg tablet 20 mg PO QHS CHOLESTEROL 90 days #90 tabs 04/03/20 [Rx Last Taken Unknown] omeprazole 20 mg capsule,delayed release 20 mg PO DAILY PRN 05/05/21 [History Last Taken Unknown] rivaroxaban 20 mg tablet (Xarelto) 20 mg PO QPM #30 tabs 04/22/22 [Rx Last Taken Unknown] lisinopril 20 mg tablet 20 mg PO BID #180 tabs 05/23/22 [Rx Last Taken Unknown] furosemide 40 mg tablet 40 mg PO DAILY #90 tabs 07/27/22 [Rx Last Taken Unknown] fluticasone propionate 55 mcg/actuation breath activated powder inhalr 1 inh i nhalation Q12H 11/22/22 [History Last Taken Unknown] metoprolol succinate 50 mg tablet,extended release 24 hr (Toprol XL) 50 mg PO DAILY #90 tabs 11/22/22 [Rx Last Taken Unknown] sildenafil (pulm.hypertension) 20 mg tablet 20 mg PO DAILY PRN 11/22/22 [History Last Taken Unknown] amlodipine 5 mg tablet (Norvasc) 5 mg PO DAILY #21 tabs 11/28/22 [Rx Last Taken Unknown] thiamine HCl (vitamin B1) 100 mg tablet 100 mg PO DAILY #7 tabs 11/28/22 [Rx Last Taken Unknown] Allergy/AdvReac Type Severity Reaction Status Date / Time oxycodone HCl [From Percocet] Allergy Other Verified 11/28/22 11:06 Family History Mother CVA (cerebral vascular accident) Diabetes Surgical History H/O aortic valve replacement (01/25/10) History of appendectomy History of hand surgery History of left heart catheterization (07/05/18) 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) History of tonsillectomy and adenoidectomy Social History Smoking Status: Never smoker ROS ROS ED Constitutional Constitutional ED: Reports other Details: Confusion, unsteadiness ; Denies chills Eyes Eyes: Denies change in vision ENT ENT ED: Denies sore throat Cardiovascular Cardiovascular: Denies chest pain Respiratory/Chest Respiratory/Chest: Denies cough, dyspnea or dyspnea on exertion Gastrointestinal Gastrointestinal: Denies abdominal pain, nausea or vomiting Musculoskeletal Musculoskeletal: Denies arthralgias or myalgias Integumentary Denies rash Neurologic Neurologic: Denies headache(s), paresthesias or weakness Psychiatric Psychiatric: Reports anxiety; Denies depression Hematologic/Lymphatic Hematologic/Lymphatic: Reports easy bleeding and easy bruising EXAM Physical Exam Const Vital Signs: 11/28/22 11:06 11/28/22 12:05 11/28/22 12:13 Temperature 96.6 F L Temperature Source Temporal Pulse Rate 65 61 Respiratory Rate 14 23 H Respiratory Effort Normal Non-Labored Blood Pressure 178/107 H 164/105 H Blood Pressure Mean 130 124 Pulse Ox 100 Oxygen Delivery Method Room Air 11/28/22 13:10 Temperature Temperature Source Pulse Rate 62 Respiratory Rate 17 Respiratory Effort Blood Pressure 171/98 H Blood Pressure Mean 122 Pulse Ox Oxygen Delivery Method Positive well nourished and well developed General Appearance ED: well developed and NAD HEENT Reports moist mucous membranes Negative for trauma or tenderness Eyes PERRL and EOMs intact bilaterally General Eye ED: Negative for pale conjunctiva or scleral icterus Neck supple and no JVD Chest Wall inspection of chest normal and palpation of chest normal Resp normal respiratory effort and clear to auscultation bilaterally Cardio regular rate, regular rhythm and no murmurs GI normal to inspection, nondistended, normoactive bowel sounds and non-tender Palpation: Negative for guarding Back/Spine no CVA tenderness Extremity normal to inspection General Extremety ED: Negative for edema or tenderness General Extremity: Negative for edema Neuro oriented x3, CN's II-XII intact bilaterally and no sensory deficits noted Neuro Narrative: NIH equals 0, normal coordination with [id number]. No truncal ataxia. Very subtle resting tremor of the hands noted. No asterixis on exam Sensorium / Orientation: alert Motor Exam: strength 5/5 throughout; Negative for general weakness Psych mental status grossly normal Skin no rashes or lesions noted and no wounds MDM MDM MDM Narrative Medical decision making narrative: For elevated blood pressure as well as ongoing issues with dizziness and confusion. Appears nontoxic no acute distress. No focal neurologic deficits. Patient is have a history significant for alcohol dependency as well as hypertension, coronary artery disease and chronic anticoagulation. While there is no report of trauma I did obtain a CT of the brain to rule out any hemorrhage. This is negative for any acute process. Does show some sinusitis however patient is not having any symptoms to go along with this. His CBC is largely normal. He does have a mild elevation of his MCV and MCH but no anemia. Thiamine levels added on as Warnicke's encephalopathy is also in the differential however patient does not appear acutely altered at this time. Ammonia level is normal and lower suspicion for hepatic encephalopathy as a cause of his symptoms. Not result today but will start him on 1 week course of thiamine out of an abundance of caution. CMP shows a mild elevation of his creatinine of 1.35 however patient seems to have a history of mild renal insufficiency. His blood pressure does remain elevated in the ER. His urinalysis is normal and his alcohol level is normal at 21. No signs of infection. She does not show any acute ischemic changes and is ventricularly paced. I do not think further cardiac work-up is indicated. I do not think this is a hypertensive emergency with his elevated blood pressure. We will start the patient on Norvasc for better blood pressure control. His not renally cleared and should not affect the kidney function. Counseled the importance of maintaining a blood pressure log. Patient and significant other verbalized given understand this plan. Patient has follow-up in a couple weeks for blood pressure check. Given return precaution. Given referral for neurology due to his ongoing neurologic symptoms however at this time they seem to be more subacute I do not think he requires admission at this time especially as he still able to perform his ADLs. Lab Data Attestation: I reviewed the patient's lab results. Labs: Laboratory Results - last 24 hr 11/28/22 11/28/22 12:55 13:05 WBC 5.9 RBC 4.02 L Hgb 13.6 Hct 41.0 MCV 102.0 H MCH 33.8 H MCHC 33.2 RDW Std Deviation 48.3 H RDW Coeff of Janes 12.9 Plt Count 163 MPV 9.8 Immature Gran % (Auto) 0.500 Neut % (Auto) 73.2 H Lymph % (Auto) 15.0 L [place] % (Auto) 8.7 Eos % (Auto) 1.7 Baso % (Auto) 0.9 Absolute Neuts (auto) 4.3 Absolute Lymphs (auto) 0.88 Nucleated RBC % 0 Sodium 142 Potassium 3.9 Chloride 103 Carbon Dioxide 32.0 Anion Gap 7 BUN 13 Creatinine 1.35 H Estim Creat Clear Calc 49.58 Est GFR (MDRD) Af Amer 66 Est GFR (MDRD) Non-Af 55 L BUN/Creatinine Ratio 9.6 L Glucose 121 H Calcium 8.9 Total Bilirubin 1.00 AST 46 H ALT 52 Alkaline Phosphatase 82 Ammonia 12.0 Total Protein 7.1 Albumin 3.6 Globulin 3.5 Albumin/Globulin Ratio 1.0 Lipase 41 Urine Color Straw Urine Clarity Clear Urine pH 7.0 Ur Specific [place] 1.010 Urine Protein Negative Urine Glucose (UA) Normal Urine Ketones Negative Urine Occult Blood Negative Urine Nitrite Negative Urine Bilirubin Negative Urine Urobilinogen Normal Ur Leukocyte Esterase Negative Urine RBC 0 SEEN Urine WBC 0 SEEN Ur Squamous Epith Cells 0 SEEN Urine Bacteria 0 SEEN Urine Mucus 0 SEEN Ethyl Alcohol 21.0 Radiography Diagnostic Testing: Clinical Impression(s) from Imaging Studies Brain CT 11/28/22 12:37 IMPRESSION: Chronic involutional changes of the brain. Sinusitis. Electronically Signed: Sanford Benitez MD at 14:10 EDT , Rhythm Strip Rhythm Strip: Paced Rate: 60 Ectopy: None EKG Initial EKG: Attestation: I personally reviewed and interpreted this EKG as follows: Interpretation: Paced Comments: General paced rhythm at a rate of 60 bpm Normal axis Normal ST segments Discharge Plan Triage Chief Complaint: Hypertension Other Complaint: Confusion Dizziness ED Provider: Yoli Logan Dx/Rx/DC Orders Clinical Impression: Confusion, Essential (primary) hypertension, Unsteady gait Instructions: ED Confusion, ED Hypertension, Established Prescriptions: New amlodipine [Norvasc] 5 mg tablet 5 mg PO DAILY Qty: 21 0RF thiamine HCl (vitamin B1) 100 mg tablet 100 mg PO DAILY Qty: 7 0RF No Action omeprazole 20 mg capsule,delayed release(DR/EC) 20 mg PO DAILY PRN sildenafil (pulm.hypertension) 20 mg tablet 20 mg PO DAILY PRN Rx Instructions: administer doses at least 4-6 hours apart fluticasone propionate 55 mcg/actuation aerosol powdr breath activated 1 inh inhalation Q12H metoprolol succinate [Toprol XL] 50 mg tablet extended release 24 hr 50 mg PO DAILY Qty: 90 3RF atorvastatin 20 mg tablet 20 mg PO QHS 90 Days Qty: 90 3RF Xarelto 20 mg tablet 20 mg PO QPM Qty: 30 11RF Rx Instructions: must administer with evening meal lisinopril 20 mg tablet 20 mg PO BID Qty: 180 4RF furosemide 40 mg tablet 40 mg PO DAILY Qty: 90 3RF Primary Care Provider: Phoebe Beltran Referrals: Phoebe Beltran MD [Primary Care Provider] - Adi Irvin MD [Non-Staff -Ordering Privileges] - As soon as possible Activity Restrictions/Additional Instructions: Your work-up was largely normal today. Your kidney function is borderline elevated however it appears stable. With your elevated blood pressure reading we will start you on a new blood pressure medicine (Norvasc/amlodipine). This would not affect your kidneys. You can take it in conjunction with your other medicines. The cause of your ongoing unsteadiness and confusion is not clear however at this time I think it safe for you to go home. I do recommend following up with neurology as well as your pattern perforating machine operator and your primary care provider for blood pressure check in 3 weeks as previously discussed. Please keep a blood pressure log. Return to the ER if you have a progression or worsening your symptoms or further concerns. Increase your water intake slightly and please try to moderate your alcohol drinking. Disposition Disposition: Home, Self Care Discharge Date/Time: 11/28/22 16:06
[2022-11-28 15:00] VITALS: BP 184/112; PULSE 61
[2022-11-28 15:54] VITALS: BP 169/113; PULSE 66
[2022-11-28] MEDS: amLODIPine 5 MG Tablet PO (16:01)
[2022-11-30 17:07] LABS: Vitamin B1, Thiamine 103.3 nmol/L (66.5-200.0)
== END 2022-11-28 16:06 | disposition home or self-care (01) ==
PROVIDERS: Emergency Provider Emergency Medicine; PCP Internal Medicine; Visit Provider Emergency Medicine
DX: R41.0 Disorientation, unspecified (principal); I11.0 Hypertensive heart disease with heart failure; I50.32 Chronic diastolic (congestive) heart failure; F10.20 Alcohol dependence, uncomplicated; I48.19 Other persistent atrial fibrillation; E11.9 Type 2 diabetes mellitus without complications; I25.10 Atherosclerotic heart disease of native coronary artery without angina pectoris; R26.81 Unsteadiness on feet; R42 Dizziness and giddiness; E78.5 Hyperlipidemia, unspecified; Z79.899 Other long term (current) drug therapy; F41.9 Anxiety disorder, unspecified; Z79.01 Long term (current) use of anticoagulants
CPT/HCPCS: 70450; 80053; 81001; 82077; 82140; 83690; 84425; 85025; 93005; 99283; A4216

== ENCOUNTER → 2023-05-25 | Outpatient (CLI) | payer MEDICARE, OTHER, SELFPAY ==
[2023-05-25 16:23] LABS: Absolute Lymphocyte Count 0.91 X10^3/uL (0.83-4.51); Absolute Neutrophil Count 5.9 X10^3/uL (2.0-7.7); Basophil# 0.03 X10^3/uL; Basophil% 0.4 % (0-1); Eosinophil# 0.07 X10^3/uL; Eosinophils% 0.9 % (0-5); Hematocrit 38.4 % (40-54); Hemoglobin 12.7 g/dL (13.0-16.5); Lymphocyte # 0.91 X10^3/ul (0.83-4.51); Mean Corp Hgb Conc 33.1 g/dL (32-36); Mean Corpuscular Volume 99.7 fL (80-94); Mean Platelet Vol. 9.6 fl (6.2-12.0); Monocyte# 0.64 X10^3/uL; Monocyte% 8.4 % (0-10); NRBC Flagged by Analyzer 0 % (0-5); Neutrophil # 5.91 X10^3/uL (2.7-7.7); Platelet Count 218 K/mm3 (150-450); RBC Distribution Width CV 12.6 % (11.6-14.6); RBC Distribution Width SD 46.5 fl (35.1-43.9); Red Blood Count 3.85 M/mm3 (4.6-6.2); White Blood Count 7.6 K/mm3 (4.4-11.0)
[2023-05-25 16:54] LABS: BNP,B-Type NATRIURETIC PEPTIDE 222.8 pg/mL (0-100)
[2023-05-25 16:57] LABS: Anion Gap 5 (5-15); BUN 16 mg/dL (7-18); BUN/Creat Ratio 11.8 RATIO (10-20); Calcium,Total 9.2 mg/dL (8.5-10.1); Chloride 101 mmol/L (98-107); Creatinine, Serum 1.36 mg/dL (0.70-1.30); EST Glomerular Filtration Rate 54 mL/min (>60); Est Glom Filt Rate - Afr Amer 65 mL/min (>60); Glucose 129 mg/dL (74-106); Potassium 4.2 mmol/L (3.5-5.1); Sodium Level 138 mmol/L (136-145)
== END | disposition home or self-care (01) ==
LOC: LAB 15:06
PROVIDERS: PCP Internal Medicine; Referring Provider Nurse Practitioner Gerontology; Visit Provider Nurse Practitioner Gerontology
DX: I50.32 Chronic diastolic (congestive) heart failure (principal)
CPT/HCPCS: 36415; 80048; 83880; 85025

== ENCOUNTER → 2023-05-26 | Outpatient (CLI) | payer MEDICARE, OTHER, SELFPAY ==
--- NOTE | 2023-05-26 12:36 | ECHOD_ITS ---
Reason For Study: SOB Procedure This was a 2D Doppler, Color Flow transthoracic echocardiogram. Exam performed in department. Left Ventricle Normal LV size. Mild concentric left ventricular hypertrophy. D shaped septum in diastole. The left ventricular ejection fraction is 55 %. Apical wall motion abnormality may reflect pacemaker activation. Right Ventricle Normal RV size. ICD or pacer leads identified within the right ventricle. Normal systolic function. Atria The left atrium is moderately enlarged. The right atrium is moderately enlarged. Mitral Valve Normal mitral valve. Mild (1+) posteriorly directed mitral valve insufficiency. Tricuspid Valve Normal tricuspid valve. Mild (1+) tricuspid valve insufficiency. Pulmonary artery systolic pressure is 44 mmHg. Aortic Valve Peak aortic valve gradient 42 mmHg. Mean aortic valve gradient 24 mmHg. Bioprosthetic aortic valve. Pulmonic Valve Normal pulmonic valve. Great Vessels Normal aortic root. The pulmonary artery is normal size. Inferior vena cava collapse with respiration. Pericardium/Pleural No pericardial effusion. MMode/2D Measurements & Calculations LVIDd: 4.8 cm IVSd: 1.6 cm LVOT diam: 1.9 cm LVIDs: 3.4 cm LVPWd: 1.2 cm LVOT area: 2.9 cm2 RVDd: 3.8 cm FS: 28.7 % Ao root diam: 3.6 cm LAV(MOD-bp): 70.5 ml LVAd ap4: 29.6 cm2 LAV(MOD-bp) Indexed: 32.3 ml/m2 LVLd ap4: 9.4 cm LAV(MOD-sp2): 59.4 ml EDV(MOD-sp4): 81.0 ml LAV(MOD-sp4): 79.4 ml EDV(sp4-el): 79.6 ml LVAs ap4: 19.1 cm2 LVLs ap4: 8.2 cm ESV(MOD-sp4): 36.4 ml ESV(sp4-el): 37.7 ml EF(MOD-sp4): 55.1 % EF(sp4-el): 52.6 % SV(MOD-sp4): 44.6 ml SV(sp4-el): 41.9 ml LA A4 area: 24.6 cm2 LA dimension(2D): 5.1 cm RA A4 area: 26.0 cm2 TAPSE: 1.2 cm Time Measurements MV dec time: 0.17 sec Doppler Measurements & Calculations MV E max eryn: 109.4 cm/sec MV V2 max: 104.2 cm/sec MV dec slope: 658.7 cm/sec2 MV A max eryn: 23.5 cm/sec MV max P.4 mmHg MV E/A: 4.7 MV V2 mean: 50.1 cm/sec MV mean P.3 mmHg MV V2 VTI: 26.2 cm Ao V2 max: 323.4 cm/sec PA V2 max: 86.9 cm/sec TR max eryn: 314.0 cm/sec Ao max P.8 mmHg PA V2 mean: 58.3 cm/sec TR max P.4 mmHg Ao V2 mean: 229.1 cm/sec Ao mean P.9 mmHg Ao V2 VTI: 78.5 cm ECHO/Echo Complete Interpretation Summary Normal LV size. Mild concentric left ventricular hypertrophy. D shaped septum in diastole. The left ventricular ejection fraction is 55 %. Mean aortic valve gradient 24 mmHg. Bioprosthetic aortic valve. Compared to the previous the above is not significant changed. Ordering Physician: CRISTINA FARIA Referring Physician: CRISTINA FARIA Performed By: Kinga Livingston RCS
== END | disposition home or self-care (01) ==
LOC: CVS 12:35
PROVIDERS: PCP Internal Medicine; Referring Provider Nurse Practitioner; Visit Provider Nurse Practitioner
DX: I10 Essential (primary) hypertension (principal); I48.0 Paroxysmal atrial fibrillation; I25.10 Atherosclerotic heart disease of native coronary artery without angina pectoris; Z95.2 Presence of prosthetic heart valve; R06.02 Shortness of breath
CPT/HCPCS: 93306

== ENCOUNTER → 2023-06-01 | Outpatient (CLI) | payer MEDICARE, OTHER, SELFPAY ==
[2023-06-01 13:32] LABS: Anion Gap 4 (5-15); BUN 17 mg/dL (7-18); BUN/Creat Ratio 12.6 RATIO (10-20); Calcium,Total 9.5 mg/dL (8.5-10.1); Chloride 101 mmol/L (98-107); Creatinine, Serum 1.35 mg/dL (0.70-1.30); EST Glomerular Filtration Rate 54 mL/min (>60); Est Glom Filt Rate - Afr Amer 66 mL/min (>60); Glucose 157 mg/dL (74-106); Potassium 4.2 mmol/L (3.5-5.1); Sodium Level 137 mmol/L (136-145)
== END | disposition home or self-care (01) ==
LOC: LAB 12:33
PROVIDERS: PCP Internal Medicine; Referring Provider Nurse Practitioner Gerontology; Visit Provider Nurse Practitioner Gerontology
DX: I50.32 Chronic diastolic (congestive) heart failure (principal)
CPT/HCPCS: 36415; 80048

== ENCOUNTER → 2023-06-27 | Outpatient (CLI) | payer MEDICARE, OTHER, SELFPAY ==
[2023-06-27 16:36] LABS: Anion Gap 5 (5-15); BUN 17 mg/dL (7-18); BUN/Creat Ratio 13.6 RATIO (10-20); Calcium,Total 9.5 mg/dL (8.5-10.1); Chloride 102 mmol/L (98-107); Creatinine, Serum 1.25 mg/dL (0.70-1.30); EST Glomerular Filtration Rate 60 mL/min (>60); Est Glom Filt Rate - Afr Amer 72 mL/min (>60); Glucose 103 mg/dL (74-106); Sodium Level 137 mmol/L (136-145)
== END | disposition home or self-care (01) ==
LOC: LAB 14:57
PROVIDERS: PCP Internal Medicine; Referring Provider Nurse Practitioner Gerontology; Visit Provider Nurse Practitioner Gerontology
DX: I50.32 Chronic diastolic (congestive) heart failure (principal)
CPT/HCPCS: 36415; 80048

== ENCOUNTER 2023-08-05 14:10 | Emergency (ER) | payer MEDICARE, OTHER, SELFPAY ==
[2023-08-05 14:11] VITALS: BP 132/89; PULSE 66; PULSE 71; RESP 14; RESP 16; TEMP 36.5; O2SAT 95; O2SAT 97; BMI 31.1
--- NOTE | 2023-08-05 14:25 | RAD_ITS ---
INDICATION: swelling, injury EXAMINATION/TECHNIQUE: X-RAY - RIGHT XR Elbow 2 Views COMPARISON: No relevant prior comparison study available FINDINGS: SOFT TISSUES: No soft tissue swelling or gas. Soft tissue swelling of the posterior aspect of the elbow. BONES/JOINTS: There is no displacement of the anterior or posterior fat pads. No acute fracture or subluxation. Small degenerative spur of the olecranon process. Preservation of the joint space. No sclerotic or destructive changes observed. RAD/Elbow 2 Views IMPRESSION: 1. Soft tissues swelling posteriorly. 2. No evidence of acute fracture or dislocation. Electronically Signed: Randall Matson MD at 14:48 EDT ,
--- NOTE | 2023-08-05 14:37 | EX.ED.UPPERE ---
HPI <NILSON Dove - Last Filed: 08/05/23 19:27> History of Present Illness Chief Complaint: Upper Extremity Injury Narrative Narrative: Patient presenting today due to swelling to his right elbow that he noticed this morning when waking up. He reports that he was drinking last night and had a fall and landed on his right elbow. He denies hitting his head or any other injury. He is on Eliquis for history of atrial fibrillation. He reports that there is some pain with flexion of the elbow. COUNTS INCLUDE 234 BEDS AT THE [facility] <NILSON Dove - Last Filed: 08/05/23 19:27> COUNTS INCLUDE 234 BEDS AT THE [facility] Medical History COVID-19 virus detected (12/2019) Nonobstructive atherosclerosis of coronary artery Bradycardia Sick sinus syndrome Secondary pulmonary arterial hypertension Type 2 diabetes mellitus Chronic diastolic (congestive) heart failure Osteoarthritis Persistent atrial fibrillation Bicuspid aortic valve Non-rheumatic aortic stenosis Essential (primary) hypertension Hyperlipidemia Home Medications ?Medication ?Instructions ?Recorded ?Last Taken ?Type atorvastatin 20 mg tablet 20 mg PO QHS CHOLESTEROL 90 days 04/03/20 Unknown Rx #90 tabs lisinopril 20 mg tablet 20 mg PO BID #180 tabs 05/23/22 Unknown Rx metoprolol succinate 50 mg 50 mg PO DAILY #90 tabs 11/22/22 Unknown Rx tablet,extended release 24 hr (Toprol XL) escitalopram oxalate 20 mg tablet 20 mg PO DAILY 05/25/23 Unknown History (Lexapro) fluticasone propionate 55 1 inh inhalation Q12H PRN 05/25/23 Unknown History mcg/actuation breath activated powder inhalr folic acid 1 mg tablet 1 mg PO DAILY 05/25/23 Unknown History memantine 5 mg tablet 5 mg PO QAM 05/25/23 Unknown History potassium chloride 8 mEq 8 meq PO DAILY #90 tabs 05/29/23 Unknown Rx tablet,extended release rivaroxaban 20 mg tablet (Xarelto) 20 mg PO QPM #30 TABLETS 06/06/23 Unknown Rx furosemide 40 mg tablet (Lasix) 40 mg PO BID this is a dose 06/28/23 Unknown Rx increase #180 tabs amlodipine 10 mg tablet 5 mg (1/2 x 10 mg) PO DAILY This 07/31/23 Unknown Rx is a dose increase #45 tabs cholecalciferol (vitamin D3) 1,250 1,250 mcg PO QWEEK 07/31/23 Unknown History mcg (50,000 unit) capsule omeprazole 20 mg capsule,delayed 20 mg PO DAILY PRN heartburn 07/31/23 Unknown History release Allergy/AdvReac Type Severity Reaction Status Date / Time oxycodone HCl (From Percocet) Allergy Other Verified 08/05/23 14:12 Family History Mother CVA (cerebral vascular accident) Diabetes Surgical History 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) History of hand surgery History of tonsillectomy and adenoidectomy History of appendectomy History of left heart catheterization (07/05/18) H/O aortic valve replacement (01/25/10) Social History Smoking Status: Never smoker alcohol intake: current alcohol intake frequency: 3 or more drinks per day Alcohol type: beer, wine and hard liquor substance use type: does not use caffeine: Yes (protein drink has 1 serving) ROS <NILSON Dove - Last Filed: 08/05/23 19:27> ROS ED Constitutional Constitutional ED: Denies chills or fever(s) Cardiovascular Cardiovascular: Denies chest pain Respiratory/Chest Respiratory/Chest: Denies dyspnea Musculoskeletal Musculoskeletal: Reports other Details: Swelling right elbow Integumentary Denies Abrasions or rash Neurologic Neurologic: Denies paresthesias EXAM <NILSON Dove - Last Filed: 08/05/23 19:27> Physical Exam Const Vital Signs: 08/05/23 14:11 08/05/23 14:11 Temperature 97.7 F L Temperature Source Temporal Pulse Rate 71 66 Respiratory Rate 14 16 Blood Pressure 132/89 H 132/89 H Blood Pressure Mean 103 103 Pulse Ox 97 95 Oxygen Delivery Method Room Air Room Air Positive well nourished, well developed and no apparent distress General Appearance ED: well developed HEENT Reports normocephalic and head/scalp atraumatic Mouth ED: Yes moist mucous membranes normal Eyes PERRL and EOMs intact bilaterally Neck full ROM and supple Chest Wall inspection of chest normal Resp normal respiratory effort and clear to auscultation bilaterally Cardio regular rate and regular rhythm GI soft to palpation, non-tender, non-distended and no masses Back/Spine normal ROM and normal to inspection Extremity Extremity Narrative: Swelling to the posterior aspect of the right elbow, slightly decreased ROM due to swelling. Right radial pulse 2+, good capillary refill, sensation intact. Neuro oriented x3, CN's II-XII intact bilaterally, moves all extremities, no focal motor deficits and no sensory deficits noted Sensorium / Orientation: awake and alert Psych mental status grossly normal and thought process normal Skin no rashes or lesions noted and no wounds [facility] <NILSON Dove - Last Filed: 08/05/23 19:27> [facility] Narrative Medical decision making narrative: Patient presenting today with swelling to the right elbow after an injury that occurred last night. X-ray obtained to rule out fracture and is negative. He is on Eliquis for A-fib. Examination consistent with traumatic bursitis. RICE instructions were discussed. Elbow was Cameron wrapped. He can take Tylenol for pain as needed. Patient discharged home in stable condition. <Dr. Randell Matos, - Last Filed: 08/05/23 14:42> [facility] Treatment and Re-Evaluation Narrative: I have personally performed a face to face assessment of the patient and have reviewed the OLMAN Note. I performed a substantive portion of the visit including all aspects of the following. My gibbs findings include: History: Patient presents with right elbow injury that occurred last night. Patient states he fell and landed on his right elbow. Patient states the pain is worse with flexion of his elbow. Patient states it is better with extension. Patient denies any paresthesias or weakness. Patient denies any head injury or loss of consciousness. Patient is on Eliquis due to A-fib and aortic valve replacement. Exam: Vital signs are stable. Patient is afebrile. Patient is in no acute distress. Musculoskeletal exam reveals tenderness, edema, and mild erythema over the posterior aspect of the right elbow. Range of motion was slightly limited in complete flexion secondary to pain. There is no obvious deformity noted. There is no tenderness over the radial head. Radial pulses are equal bilaterally. Strength is 5/5 in the radial, median, and ulnar areas. Sensation was intact to light touch in the radial, median, and ulnar areas. Medical Decision Making: Differential diagnosis includes occult fracture, contusion, traumatic bursitis, and sprain. X-rays of the right elbow will be obtained to assess for fracture. X-rays of the right elbow were obtained. There are 2 views. On my independent interpretation, there is no acute fracture. There is no joint effusion noted. There is no dislocation noted. Radiologist also interpreted the x-rays and agrees. Patient was advised of his findings. Patient was instructed to ice and elevate the right elbow. Patient was instructed to take Tylenol as needed for pain. Patient was instructed to follow-up with his primary care physician in 5 to 7 days. Patient understood and was agreeable with the plan. All questions were answered. Discharge Plan Triage Chief Complaint: Upper Extremity Injury ED Midlevel Provider: Shanice Brand ED Provider: Randell Matos Dx/Rx/DC Orders Clinical Impression: Bursitis of elbow, Fall, Chronic anticoagulation Instructions: ED Bursitis Prescriptions: No Action metoprolol succinate [Toprol XL] 50 mg tablet extended release 24 hr 50 mg PO DAILY Qty: 90 3RF fluticasone propionate 55 mcg/actuation aerosol powdr breath activated 1 inh inhalation Q12H PRN folic acid 1 mg tablet 1 mg PO DAILY escitalopram oxalate [Lexapro] 20 mg tablet 20 mg PO DAILY memantine 5 mg tablet 5 mg PO QAM omeprazole 20 mg capsule,delayed release(DR/EC) 20 mg PO DAILY PRN (Reason: heartburn) cholecalciferol (vitamin D3) 1,250 mcg (50,000 unit) capsule 1,250 mcg PO QWEEK amlodipine 10 mg tablet 5 mg PO DAILY Qty: 45 11RF atorvastatin 20 mg tablet 20 mg PO QHS 90 Days Qty: 90 3RF lisinopril 20 mg tablet 20 mg PO BID Qty: 180 4RF potassium chloride 8 mEq tablet extended release 8 meq PO DAILY Qty: 90 3RF Xarelto 20 mg tablet 20 mg PO QPM Qty: 30 11RF furosemide [Lasix] 40 mg tablet 40 mg PO BID Qty: 180 3RF Primary Care Provider: Phoebe Beltran Referrals: Phoebe Beltran MD [Primary Care Provider] - Fidel Palomino MD [Med Staff - Active Staff] - 1 Week if not improving Activity Restrictions/Additional Instructions: Ice your elbow 15 to 20 minutes at a time 3-4 times a day for the next few days. Return for any worsening or concerning symptoms. Print Language: Kenyan Disposition Disposition: Home, Self Care Discharge Date/Time: 08/05/23 15:24
== END 2023-08-05 15:24 | disposition home or self-care (01) ==
LOC: ED 15:16
PROVIDERS: Emergency Provider Emergency Medicine; PCP Internal Medicine; Visit Provider Emergency Medicine
DX: M70.31 Other bursitis of elbow, right elbow (principal); I50.32 Chronic diastolic (congestive) heart failure; I11.0 Hypertensive heart disease with heart failure; I48.91 Unspecified atrial fibrillation; E11.9 Type 2 diabetes mellitus without complications; Z79.01 Long term (current) use of anticoagulants; Z79.899 Other long term (current) drug therapy; W19.XXXA Unspecified fall, initial encounter
CPT/HCPCS: 73070; 99282

== ENCOUNTER 2023-12-05 23:55 | Emergency (ER) | payer MEDICARE, OTHER, SELFPAY ==
[2023-12-05 23:56] VITALS: BP 127/63; PULSE 70; RESP 28; TEMP 36.5; O2SAT 97; BMI 32.8
--- NOTE | 2023-12-06 00:12 | EKG12_ITS ---
Test Reason : FALL Blood Pressure : / mmHG Vent. Rate : 061 BPM Atrial Rate : 077 BPM P-R Int : 000 ms QRS Dur : 188 ms QT Int : 554 ms P-R-T Axes : 000 068 061 degrees QTc Int : 557 ms Ventricular-paced rhythm Abnormal ECG Confirmed by ISSAC VASQUEZ, OPHELIA ([id number]), editor magazine JAMES MCCORMICK ([id number]) on 12/08/2023 2:06:07 PM Referred By: TB Confirmed By:OPHELIA DAVENPORT MD
--- NOTE | 2023-12-06 00:12 | CT_ITS ---
STUDY: CT CHEST, ABDOMEN T PELVIS WITH CONTRAST REASON FOR EXAM: Male, 78 years old. fall down five steps -- TRAUMA ONLY: IV Contrast. Dont wait for creatinine RADIATION DOSAGE (If Supplied By Facility): CTDIvol = ( 26.12 ) mGy, DLP = ( 2634.71 ) mGycm TECHNIQUE: Transaxial imaging was performed following intravenous administration of 100 ml isovue 370. The protocol utilizes one or more of the following dose reduction techniques: automated exposure control, adjustment of mA and/or kV according to patient size,and/or use of iterative reconstruction technique. COMPARISON: No relevant prior comparison study available FINDINGS: CHEST The lungs are normal. There is no demonstrated pleural abnormality. Normal heart and pericardium. Normal mediastinum. Normal hilar regions. Normal unenhanced pulmonary arteries. Normal aorta arch and descending thoracic aorta. Possible nondisplaced fractures at the anterior aspect of the left fourth and fifth ribs. There is no demonstrated abnormality of the visualized upper abdomen. ABDOMEN The visualized lung bases are unremarkable. The visualized portions of the heart are within normal limits. There is a hemangioma in the right lobe of the liver measures 4.2 x 2.9 cm. Normal gallbladder and extrahepatic biliary system. Normal spleen. Normal pancreas. Normal bilateral adrenal glands. Bilateral renal cysts, the largest measures 2.3 cm . There is a small hiatal hernia. Normal small intestine. Normal colon. The appendix is visualized and appears normal. Normal abdominal aorta. Normal inferior vena cava. Normal retroperitoneum. There is a small umbilical hernia containing fat. Normal osseous structures. PELVIS Normal urinary bladder. Normal visualized small intestine. Normal visualized colon. There is no pelvic fluid. There is no pelvic lymphadenopathy or mass lesion. Normal visualized pelvic arteries. Normal abdominal wall. Normal osseous structures. CT/CT Chest, Abd, Pel w/Contrast IMPRESSION: There is a hemangioma in the right lobe of the liver measures 4.2 x 2.9 cm. Bilateral renal cysts, the largest measures 2.3 cm . Electronically Signed: Mustapha Baptiste MD at 1:28 EDT ,
--- NOTE | 2023-12-06 00:12 | CT_ITS ---
INDICATION: Trauma EXAMINATION: CT CERVICAL SPINE - CT Spine Cervical W/O Contrast Injection TECHNIQUE: Helically acquired images were obtained of the cervical spine. 2D reformatted images were reviewed. The protocol utilizes one or more of the following dose reduction techniques: automated exposure control, adjustment of mA and/or kV according to patient size,and/or use of iterative reconstruction technique. IV Contrast dosage and agent: None. RADIATION DOSAGE (If Supplied By Facility): CTDIvol = ( 26.38 ) mGy, DLP = ( 574.93 ) mGycm COMPARISON: No relevant prior comparison study available FINDINGS: Normal craniovertebral junction. Normal anterior atlantoaxial articulation. Normal odontoid process. There is straightening of the normal cervical lordosis. Normal vertebral bodies and posterior osseous elements. C2-3: Normal endplates. Normal disc height and morphology. Normal central canal and intervertebral neuroforamina. C3-4, C4-5, C5-6, C6-7: Endplate spondylosis. Central and paracentral disc bulge. Degenerative changes of the bilateral facet joints and uncovertebral joints. [id number] narrowing of the central canal and the bilateral intervertebral neural foramina. C7-T1: Normal endplates. Normal disc height and morphology. Normal central canal and intervertebral neuroforamina. Normal visualized soft tissue structures. CT/Spine Cervical without Contras IMPRESSION: Multilevel degenerative changes, as described above. Electronically Signed: Mustapha Baptiste MD at 1:36 EDT ,
--- NOTE | 2023-12-06 00:13 | EX.ED.DYSGE1 ---
HPI History of Present Illness Chief Complaint: Fall Narrative Narrative: Patient is a 78-year-old male with past medical history of type 2 diabetes, heart failure, hypertension, sick sinus syndrome, type 2 diabetes, atrial fibrillation on Xarelto who presents to the [facility] part with chief complaint of fall down of about 5 steps. According to EMS he had been at a local bar and when he got home he was walking up the stairs and fell backwards hit his head has a cut to the back of his head. Patient states that he does not recall exactly what happened. Patient denies any complaints at this point in time. Patient states that he does drink alcohol daily. Patient states that he is unsure when his last tetanus shot was. [facility] Medical History COVID-19 virus detected (12/2019) Nonobstructive atherosclerosis of coronary artery Bradycardia Sick sinus syndrome Secondary pulmonary arterial hypertension Type 2 diabetes mellitus Chronic diastolic (congestive) heart failure Osteoarthritis Persistent atrial fibrillation Bicuspid aortic valve Non-rheumatic aortic stenosis Essential (primary) hypertension Hyperlipidemia Home Medications ?Medication ?Instructions ?Recorded ?Last Taken ?Type atorvastatin 20 mg tablet 20 mg PO QHS CHOLESTEROL 90 days 04/03/20 Unknown Rx #90 tabs lisinopril 20 mg tablet 20 mg PO BID #180 tabs 05/23/22 Unknown Rx escitalopram oxalate 20 mg tablet 20 mg PO DAILY 05/25/23 Unknown History (Lexapro) fluticasone propionate 55 1 inh inhalation Q12H PRN SOB 05/25/23 Unknown History mcg/actuation breath activated powder inhalr folic acid 1 mg tablet 1 mg PO DAILY 05/25/23 Unknown History potassium chloride 8 mEq 8 meq PO DAILY #90 tabs 05/29/23 Unknown Rx tablet,extended release rivaroxaban 20 mg tablet (Xarelto) 20 mg PO QPM #30 TABLETS 06/06/23 Unknown Rx furosemide 40 mg tablet (Lasix) 40 mg PO BID this is a dose 06/28/23 Unknown Rx increase #180 tabs amlodipine 10 mg tablet 5 mg (1/2 x 10 mg) PO DAILY This 07/31/23 Unknown Rx is a dose increase #45 tabs cholecalciferol (vitamin D3) 1,250 1,250 mcg PO QWEEK 07/31/23 Unknown History mcg (50,000 unit) capsule omeprazole 20 mg capsule,delayed 20 mg PO DAILY PRN heartburn 07/31/23 Unknown History release metoprolol succinate 50 mg 50 mg PO DAILY #90 tabs 11/20/23 Unknown Rx tablet,extended release 24 hr (Toprol XL) memantine 10 mg tablet 10 mg PO BID 12/06/23 Unknown History Allergy/AdvReac Type Severity Reaction Status Date / Time oxycodone HCl (From Percocet) Allergy Other Verified 12/06/23 00:04 Family History Mother CVA (cerebral vascular accident) Diabetes Surgical History 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) History of hand surgery History of tonsillectomy and adenoidectomy History of appendectomy History of left heart catheterization (07/05/18) H/O aortic valve replacement (01/25/10) Social History Smoking Status: Never smoker alcohol intake: current alcohol intake frequency: 3 or more drinks per day Alcohol type: beer, wine and hard liquor substance use type: does not use caffeine: Yes (protein drink has 1 serving) ROS ROS ED ROS Narrative Constitutional: Denies headaches, fevers, chills, lightness, dizziness Eyes: Denies changes double vision blurry vision Cardiovascular: Denies chest pain palpitation Respiratory: Denies coughing wheezing shortness of Abdomen: Denies abdominal pain nausea vomit diarrhea : Denies any urinary symptoms Neurological: Denies numbness, and some tingling Skin: Denies rashes or lesions EXAM Physical Exam Narrative Exam Narrative: General: Patient lying in bed rest comfortably did not appear to be in acute distress Head: Patient has 3-1/2 cm, normocephalic Eyes ears, nose, throat: PERRL bilateral, EOMI bilateral, no conjunctival injection noted, no nasal septal hematomas noted bilateral Neck: Soft, supple, trach midline, cervical collar in place Cardiovascular: Regular rate and rhythm no murmurs gallops rubs noted Respiratory: Clear to auscultation bilaterally no rales rhonchi or wheezes noted Abdomen: Soft, nondistended, nontender to palpation, bowel sounds present x 4 Musculoskeletal: All bony prominences palpated and joints taken through full range of motion no pain elicited. No tenderness to palpation of the midline of the thoracolumbar spine no step-offs or deformities noted Extremities: +5/5 strength noted in the bilateral lower extremities, no pedal edema no exam, radial pulses +2/4 in the bilateral per extremities Neurological: Patient following commands knew that he was at the emergency department the year is 2023 and we are in fall sensation grossly intact Skin: See head, patient has superficial abrasion noted to the right knuckles on the dorsal aspect of his hand Const Vital Signs: 12/05/23 23:56 12/06/23 00:25 12/06/23 01:44 Temperature 97.7 F L Temperature Source Oral Pulse Rate 70 66 Respiratory Rate 28 H 18 Respiratory Effort Normal Respiratory Depth Normal Respiratory Pattern Normal Blood Pressure 127/63 H 132/99 H Blood Pressure Mean 84 110 Pulse Ox 97 94 Oxygen Delivery Method Room Air Room Air Room Air MDM MDM MDM Narrative Medical decision making narrative: Patient is a 78-year-old male who presented to the emergency department with chief complaint of fall down a set of 5 stairs. Patient will do workup performed here on the differential diagnose includes but limited to intracranial hemorrhage, cervical spine fracture, intra-abdominal bleeding. Once workup is obtained reviewed he will be reevaluated. Patient tetanus shot will be updated here. Patient's CBC reviewed and showed no evidence leukocytosis white blood count normal 8.5, hemoglobin stable 13.7, platelet count was noted be normal at 209. Patient INR normal at 1.4, PT elevated 17.3 patient is on Xarelto. Patient sodium normal at 136, potassium normal at 4, creatinine was noted be 1.41 likely secondary to dehydration as he was drinking alcohol today and did not drink much water he was encouraged to hydrate with water when he returned home. Patient's CT head and brain was reviewed showed no acute intracranial hemorrhage. Patient CT cervical spine showed multilevel degenerative changes as described above. Patient c-collar was removed has full range of motion of his neck no pain with movement. Patient's CT chest abdomen pelvis with IV contrast was reviewed showed hemangioma in the right lobe of the liver measuring 4.2 x 2.9 cm bilateral renal cyst noted. Patient's EKG reviewed and showed a ventricular paced rhythm with a rate of 61 bpm no Sgarbossa criteria met. Patient had his laceration to the back of his head repaired and was encouraged to have his sutures removed in approximately 7 to 10 days. Patient was encouraged return with worsening symptoms or concerns. Patient did get himself dressed and was able to ambulate here without any difficulty. Patient did to get a ride home. Patient was discharged home in stable condition with all question concerns answered. He is encouraged to follow-up with his primary care physician in the outpatient setting. Procedure note Procedure name: Laceration repair Indication: Reduce risk of infection Location: Posterior superior aspect of his head on the left side 3.5 cm in length Preprocedure diagnosis: Laceration Postprocedure diagnosis: Repaired laceration Informed consent was obtained prior to procedure started. Procedure: The appropriate timeout was taken. The area was prepped and draped in usual sterile fashion. Local anesthesia was achieved using 1% cc of lidocaine 1% without epinephrine. Wound was copiously irrigated. 7 4-0 Ethilon interrupted sutures were placed. Estimated blood loss was less than 0.5 mL. Dressing was applied to the area and anticipatory guidance, as well as standard postprocedure care was explained. Return precautions are given. Patient tolerated procedure well without any complications. Follow-up visit for suture removal and evaluation of laceration. Lab Data Labs: Laboratory Results - last 24 hr 12/06/23 00:02 WBC 8.5 RBC 4.15 L Hgb 13.7 Hct 41.7 MCV 100.5 H MCH 33.0 H MCHC 32.9 RDW Std Deviation 48.5 H RDW Coeff of Janes 13.2 Plt Count 209 MPV 9.4 Immature Gran % (Auto) 0.500 Neut % (Auto) 58.8 Lymph % (Auto) 25.2 Hawkins % (Auto) 10.9 H Eos % (Auto) 3.9 Baso % (Auto) 0.7 Absolute Neuts (auto) 5.0 Absolute Lymphs (auto) 2.14 Nucleated RBC % 0 PT 17.3 H INR 1.4 APTT 32.7 Sodium 136 Potassium 4.0 Chloride 96 L Carbon Dioxide 31.0 Anion Gap 9 BUN 18 Creatinine 1.41 H Estim Creat Clear Calc 52.92 Est GFR (MDRD) Af Amer 63 Est GFR (MDRD) Non-Af 52 L BUN/Creatinine Ratio 12.8 Glucose 129 H Calcium 9.2 Radiography Diagnostic Testing: Clinical Impression(s) from Imaging Studies Cervical Spine CT 12/06/23 00:12 IMPRESSION: Multilevel degenerative changes, as described above. Electronically Signed: Mustapha Baptiste MD at 1:36 EDT , Chest/Abdomen/Pelvis CT 12/06/23 00:12 IMPRESSION: There is a hemangioma in the right lobe of the liver measures 4.2 x 2.9 cm. Bilateral renal cysts, the largest measures 2.3 cm . Electronically Signed: Mustapha Baptiste MD at 1:28 EDT , Brain CT 12/06/23 00:16 IMPRESSION: No acute intracranial hemorrhage. Electronically Signed: Mustapha Baptiste MD at 1:33 EDT , Discharge Plan Triage Chief Complaint: Fall ED Provider: Irving Jones Dx/Rx/DC Orders Clinical Impression: Fall, Laceration of head Prescriptions: No Action fluticasone propionate 55 mcg/actuation aerosol powdr breath activated 1 inh inhalation Q12H PRN (Reason: SOB) folic acid 1 mg tablet 1 mg PO DAILY escitalopram oxalate [Lexapro] 20 mg tablet 20 mg PO DAILY omeprazole 20 mg capsule,delayed release(DR/EC) 20 mg PO DAILY PRN (Reason: heartburn) cholecalciferol (vitamin D3) 1,250 mcg (50,000 unit) capsule 1,250 mcg PO QWEEK amlodipine 10 mg tablet 5 mg PO DAILY Qty: 45 11RF memantine 10 mg tablet 10 mg PO BID atorvastatin 20 mg tablet 20 mg PO QHS 90 Days Qty: 90 3RF lisinopril 20 mg tablet 20 mg PO BID Qty: 180 4RF potassium chloride 8 mEq tablet extended release 8 meq PO DAILY Qty: 90 3RF Xarelto 20 mg tablet 20 mg PO QPM Qty: 30 11RF furosemide [Lasix] 40 mg tablet 40 mg PO BID Qty: 180 3RF metoprolol succinate [Toprol XL] 50 mg tablet extended release 24 hr 50 mg PO DAILY Qty: 90 3RF Primary Care Provider: Phoebe Beltran Referrals: Phoebe Beltran MD [Primary Care Provider] - Activity Restrictions/Additional Instructions: Your tetanus shot was updated today. Have your sutures removed in approximately 7 to 10 days. No soaking your sutures. Can shower and let warm water run over these no scratching at these. Return with worsening symptoms or other concerns. Your primary care physician can remove these and follow-up with them Print Language: Irish Disposition Disposition: Home, Self Care
--- NOTE | 2023-12-06 00:16 | CT_ITS ---
INDICATION: fall, hit head on thinnners EXAMINATION: CT BRAIN - CT Head or Brain W/O Contrast Injection TECHNIQUE: Multiple axial images were obtained of the head without intravenous contrast. The protocol utilizes one or more of the following dose reduction techniques: automated exposure control, adjustment of mA and/or kV according to patient size,and/or use of iterative reconstruction technique. IV Contrast dosage and agent: None. RADIATION DOSAGE (If Supplied By Facility): CTDIvol = ( 44.99 ) mGy, DLP = ( 863.60 ) mGycm COMPARISON: No relevant prior comparison study available FINDINGS: BRAIN PARENCHYMA: No intra- or extra-axial hemorrhage. No evidence of acute infarct. No intracranial mass or mass effect. There is preservation of the forte/white matter interface. Posterior fossa structures are unremarkable. CSF SPACES: Appropriate for age. No hydrocephalus. Basal cisterns are patent. CALVARIUM, SKULL BASE, PARANASAL SINUSES AND MASTOID AIR CELLS: Mucosal thickening in the paranasal sinuses. No discrete lytic or blastic abnormalities. ORBITS: Both globes, extraocular muscles, optic nerves and retrobulbar fat appear unremarkable. ASPECTS Score for Acute Strokes: 10 CT/Brain/Head without Contrast IMPRESSION: No acute intracranial hemorrhage. Electronically Signed: Mustapha Baptiste MD at 1:33 EDT ,
[2023-12-06 00:20] LABS: Absolute Lymphocyte Count 2.14 X10^3/uL (0.83-4.51); Basophil# 0.06 X10^3/uL; Basophil% 0.7 % (0-1); Eosinophil# 0.33 X10^3/uL; Eosinophils% 3.9 % (0-5); Hematocrit 41.7 % (40-54); Hemoglobin 13.7 g/dL (13.0-16.5); Lymphocyte # 2.14 X10^3/ul (0.83-4.51); Lymphocyte % 25.2 % (19-41); Mean Corp Hgb Conc 32.9 g/dL (32-36); Mean Corpuscular Volume 100.5 fL (80-94); Mean Platelet Vol. 9.4 fl (6.2-12.0); Monocyte# 0.93 X10^3/uL; Monocyte% 10.9 % (0-10); NRBC Flagged by Analyzer 0 % (0-5); Neutrophil % 58.8 % (47-70); Platelet Count 209 K/mm3 (150-450); RBC Distribution Width CV 13.2 % (11.6-14.6); RBC Distribution Width SD 48.5 fl (35.1-43.9); Red Blood Count 4.15 M/mm3 (4.6-6.2); White Blood Count 8.5 K/mm3 (4.4-11.0)
[2023-12-06] MEDS: Diphth,Pertuss(Acell),Tet Vac 0.5 ML Vial IM (00:21)
[2023-12-06 00:37] LABS: Anion Gap 9 (5-15); BUN 18 mg/dL (7-18); BUN/Creat Ratio 12.8 RATIO (10-20); Calcium,Total 9.2 mg/dL (8.5-10.1); Chloride 96 mmol/L (98-107); Creatinine, Serum 1.41 mg/dL (0.70-1.30); EST Glomerular Filtration Rate 52 mL/min (>60); Est Glom Filt Rate - Afr Amer 63 mL/min (>60); Estimated Creatinine Clearance 52.92 ml/min; Glucose 129 mg/dL (74-106); Sodium Level 136 mmol/L (136-145)
[2023-12-06 00:41] LABS: International Normalized Ratio 1.4; Prothrombin Time (Protime)PT. 17.3 SECONDS (11.7-14.9)
[2023-12-06 00:42] LABS: Partial Thromboplast Time 32.7 Seconds (24.1-36.2)
[2023-12-06] MEDS: Lidocaine 1% (20 ml mdv) 20 ML Vial 10 ML INFILT (01:27)
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
[2023-12-06 01:44] VITALS: BP 132/99; PULSE 66; RESP 18; O2SAT 94
[2023-12-06 02:36] VITALS: BP 108/64; PULSE 67; RESP 16; TEMP 36.6; O2SAT 97
[2023-12-06 03:00] VITALS: BP 124/81; PULSE 62; RESP 16; O2SAT 97
== END 2023-12-06 03:11 | disposition home or self-care (01) ==
PROVIDERS: Emergency Provider Emergency Medicine; PCP Internal Medicine; Visit Provider Emergency Medicine
DX: S01.91XA Laceration without foreign body of unspecified part of head, initial encounter (principal); I11.0 Hypertensive heart disease with heart failure; I50.32 Chronic diastolic (congestive) heart failure; I48.19 Other persistent atrial fibrillation; E11.9 Type 2 diabetes mellitus without complications; D18.03 Hemangioma of intra-abdominal structures; I25.10 Atherosclerotic heart disease of native coronary artery without angina pectoris; K76.89 Other specified diseases of liver; Z79.01 Long term (current) use of anticoagulants; E78.5 Hyperlipidemia, unspecified; M47.812 Spondylosis without myelopathy or radiculopathy, cervical region; W10.9XXA Fall (on) (from) unspecified stairs and steps, initial encounter; Z23 Encounter for immunization
CPT/HCPCS: 12002; 70450; 71260; 72125; 74177; 80048; 85025; 85610; 85730; 90471; 90715; 93005; 99285; Q9967; A4216

== ENCOUNTER 2024-03-28 11:51 | Emergency (ER) | payer MEDICARE, OTHER, SELFPAY ==
[2024-03-28 11:53] VITALS: BP 143/95; PULSE 84; RESP 16; TEMP 36.7; O2SAT 98
--- NOTE | 2024-03-28 11:58 | EKG12_ITS ---
Test Reason : Blood Pressure : */* mmHG Vent. Rate : 60 BPM Atrial Rate : 98 BPM P-R Int : * ms QRS Dur : 184 ms QT Int : 524 ms P-R-T Axes : * 89 76 degrees QTcB Int : 524 ms Ventricular-paced rhythm Abnormal ECG Confirmed by ISSAC VASQUEZ, OPHELIA ([id number]), marketing editor JEFRY LEVINE ([id number]) on 04/01/2024 6:03:17 AM Referred By: Confirmed By: OPHELIA DAVENPORT MD
--- NOTE | 2024-03-28 12:25 | EDS_ITS ---
HPI <LARON Sharpe - Last Filed: 03/28/24 15:14> History of Present Illness Chief Complaint: Edema Narrative Narrative: Patient is a 78-year-old male, patient history of a aortic valve replacement, on Xarelto persistent atrial fibrillation patient does have a pacer, hypertension, CHF. Patient had a echocardiogram in April 2023, patient's ejection fraction was 55%. Patient did see Glenn prescott of cardiology in January 2024, patient is on 40 mg of Lasix twice a day, he is here today because he has been more short of breath over the last several weeks. Pay states he is gained approximately 30 pounds in the last 2 months. He characterizes it as any daily task, he has immediately stop and catch his breath. He states he is still urinating frequently secondary to the Lasix. He called his PCP and they referred him to the ER. [facility] <LARON Sharpe - Last Filed: 03/28/24 15:14> [facility] Medical History COVID-19 virus detected (12/2019) Nonobstructive atherosclerosis of coronary artery Bradycardia Sick sinus syndrome Secondary pulmonary arterial hypertension Type 2 diabetes mellitus Chronic diastolic (congestive) heart failure Osteoarthritis Persistent atrial fibrillation Bicuspid aortic valve Non-rheumatic aortic stenosis Essential (primary) hypertension Hyperlipidemia Home Medications ?Medication ?Instructions ?Recorded ?Last Taken ?Type atorvastatin 20 mg tablet 20 mg PO QHS CHOLESTEROL 90 days 04/03/20 Unknown Rx #90 tabs escitalopram oxalate 20 mg tablet 20 mg PO DAILY 05/24 Unknown History (Lexapro) potassium chloride 8 mEq 8 meq PO DAILY #90 tabs 03/22 Unknown Rx tablet,extended release rivaroxaban 20 mg tablet (Xarelto) 20 mg PO QPM #30 TA BLETS 06/06/23 Unknown Rx furosemide 40 mg tablet (Lasix) 40 mg PO BID this is a dose 06/28/23 Unknown Rx increase #180 tabs omeprazole 20 mg capsule,delayed 20 mg PO DAILY PRN he artburn 07/31/23 Unknown History release metoprolol succinate 50 mg 50 mg PO DAILY #90 tabs Unknown Rx tablet,extended release 24 hr (Toprol XL) memantine 10 mg tablet 10 mg PO BID 10/09/24 Unknow n History acetaminophen 500 mg tablet 500 mg PO Q6H PRN 02/01/24 Unknown History amlodipine 5 mg tablet 5 mg PO QDAY #90 tabs Unknown Rx cholecalciferol (vitamin D3) 25 25 mcg PO QDAY 4 Unknown History mcg (1,000 unit) tablet lisinopril 20 mg tablet 40 mg PO QDAY 02/01/24 Unkno wn History Allergy/AdvReac Type Severity Reaction Status Date / Time bisacodyl (From Dulcolax Allergy Intermediate Hives Verified 02/01/24 13:43 (bisacodyl)) oxycodone HCl (From Percocet) Allergy Other Verified 02/01/24 13:11 Family History Mother CVA (cerebral vascular accident) Diabetes Surgical History 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) History of hand surgery History of tonsillectomy and adenoidectomy History of appendectomy History of left heart catheterization (07/05/18) H/O aortic valve replacement (01/25/10) Social History Smoking Status: Never smoker alcohol intake: current alcohol intake frequency: 3 or more drinks per day Alcohol type: beer, wine and hard liquor details: Patient states 7-10 drinks per day substance use type: does not use caffeine: Yes (protein drink has 1 serving) ROS <LARON Sharpe - Last Filed: 03/28/24 15:14> EFRA ED EFRA Narrative Constitutional: Negative for fever, chills, weight loss. Positive for weakness Eyes: Negative for vision loss, vision change, double vision ENT: Negative for any sore throat, ear pain, congestion Cardiovascular: Negative for any chest pain, tightness, palpitations Respiratory: Negative for any cough, sputum production, hemoptysis. Positive for dyspnea, dyspnea on exertion, orthopnea Gastrointestinal: Negative for any abdominal pain, nausea, vomiting, diarrhea, constipation, blood in stool, blood in vomit : Negative for any urinary frequency, dysuria, retention, blood in urine Muscle skeletal: Negative for any neck pain, back pain. Positive for lower leg edema Neurological: Negative for any headache, syncope, dizziness Skin: Negative for any rashes, itching, abrasions, lacerations Psychiatric: Negative for any depression, anxiety, stress, suicidal ideation, homicidal ideation Hematologic: Negative for any excessive bruising, easy bleeding EXAM <LARON Sharpe - Last Filed: 03/28/24 15:14> Physical Exam Narrative Exam Narrative: Vital signs reviewed. Patient on my initial evaluation was in no distress, vital signs are stable. HEET: Head normocephalic atraumatic, TMs clear bilaterally. Posterior pharynx is clear, moist mucous membranes. Nares clear bilaterally. Neck: Supple with no lymphadenopathy or tenderness. No signs of meningismus. Cardiac: Regular rate and rhythm no murmurs gallops or rubs, equal peripheral pulses bilaterally. Respiratory: Patient did have some expiratory wheeze to the middle lobes, patient did have crackles to bilateral lower lung bases. No chest tenderness. Abdomen: Soft, nontender, nondistended. No abdominal bruit or pulsatile masses. No hepatosplenomegaly Extremities: +3 pitting edema to the lower legs, no signs of gross trauma or deformity. Active full range of motion of all extremities. Neuro: Cranial nerves II through XII intact, no focal neurological deficits. Skin: Clean dry and intact with no rash, purpura, petechiae, vesicles or pustules. Backs/flank: No CVA tenderness, no midline spinal tenderness, no deformity. Psych: Normal mood and affect. No SI, HI or acute psychosis. Const Vital Signs: 03/28/24 11:53 03/28/24 13:51 Temperature 98.1 F Temperature Source Temporal Pulse Rate 84 60 Respiratory Rate 16 Blood Pressure 143/95 H 144/85 H Blood Pressure Mean 111 104 Pulse Ox 98 95 Oxygen Delivery Method Room Air Room Air Positive well nourished and well developed General Appearance ED: well developed <Dr. Clay Douglass MD - Last Filed: 03/28/24 14:37> Physical Exam Const Vital Signs: 03/28/24 11:53 03/28/24 13:51 Temperature 98.1 F Temperature Source Temporal Pulse Rate 84 60 Respiratory Rate 16 Blood Pressure 143/95 H 144/85 H Blood Pressure Mean 111 104 Pulse Ox 98 95 Oxygen Delivery Method Room Air Room Air MDM <LARON Sharpe - Last Filed: 03/28/24 15:14> [facility] Lab Data Labs: Laboratory Results - last 24 hr 03/28/24 03/28/24 12:10 12:30 WBC 6.0 RBC 3.69 L Hgb 12.2 L Hct 37.1 L MCV 100.5 H MCH 33.1 H MCHC 32.9 RDW Std Deviation 49.8 H RDW Coeff of Janes 13.3 Plt Count 170 MPV 9.2 Immature Gran % (Auto) 0.500 Neut % (Auto) 69.6 Lymph % (Auto) 12.7 L [place] % (Auto) 15.4 H Eos % (Auto) 1.3 Baso % (Auto) 0.5 Absolute Neuts (auto) 4.2 Absolute Lymphs (auto) 0.76 L Nucleated RBC % 0 Sodium 135 L Potassium 3.4 L Chloride 97 L Carbon Dioxide 32.0 Anion Gap 6 BUN 15 Creatinine 1.46 H Estim Creat Clear Calc 51.61 Est GFR (MDRD) Af Amer 60 Est GFR (MDRD) Non-Af 50 L BUN/Creatinine Ratio 10.3 Glucose 123 H Calcium 9.0 Troponin I High Sens 28 B-Natriuretic Peptide 264.8 H Radiography Diagnostic Testing: Clinical Impression(s) from Imaging Studies Chest X-Ray 03/28/24 12:35 IMPRESSION: Prior aortic valvular replacement and sternotomy again noted. Stable right hemidiaphragm elevation. No evidence of pulmonary edema. Lungs appear clear of acute disease, and unchanged. No pleural effusion or pneumothorax is evident. The cardiomediastinal silhouette is stable, without evidence of cardiomegaly. Reading Location: [address] EKG Ventricular paced rhythm: Attestation: I personally reviewed and interpreted this EKG as follows: Interpretation: Sinus Rhythm Comments: Ventricular paced rhythm, rate of 60 bpm, QRS duration 184 ms, no acute ST elevation, no acute infarct noted. Treatment and Re-Evaluation :: Differential diagnosis includes however is not limited to: CHF exacerbation, community-acquired pneumonia, AC, medication adverse reaction Patient appears generally well, vital signs are stable, patient is nontoxic- appearing. Presenting to the emergency department for complaints of lower leg edema, increased shortness of breath that is been ongoing. Patient will receive a cardiac workup including a BNP. Two-view chest x-ray. All radiologic examina tions were read, reviewed by the emergency department attending. From these reads, a plan of care will be put in place. Patient's laboratory values showed a normal CBC, hemoglobin is 12.2 this seems to be baseline for the patient. Patient's chemistries show a creatinine of 1.46, in November 2023 is 1.4 previous in May of the same year was 1.35, patient's BNP was slightly elevated 264.8, almost 1 year ago, was 222.8. Chest x-ray was unremarkable. Patient will ambulate with a pulse ox, by nursing staff. Patient did do well. We were able to reach out to the cardiac office, patient will be getting a call and have follow-up this week. No changes will be completed through his medications at this time. Patient will continue to follow-up outpatient. Is happy with the plan of care, inspected to follow-up with cardiology next week. Stable for discharge <Dr. Clay Douglass MD - Last Filed: 03/28/24 14:37> [facility] MDM Narrative Medical decision making narrative: I have personally performed a face to face assessment of the patient and have reviewed the OLMAN Note. I performed a substantive portion of the visit including all aspects of the following. My gibbs findings include: History is [78-year-old male presents with chronic lower extremity swelling. Not specifically worse. He is already on Lasix 40 twice daily. He sees [facility] cardiology. He denies any chest pain. He is not having any significant shortness of breath. He is urinating.] Exam is [well-appearing 78-year-old male. Vital signs stable afebrile. Pulse ox 95% on room air no hypoxia. H EENT exam unremarkable. moist mucous membranes. Neck nontender JVD. Lungs clear to auscultation bilaterally. Heart regular rhythm no murmur. Rate about 70. Chest wall and ribs nontender. Abdomen soft nontender. Moving all 4 extremities. 1+ pitting edema both lower extremities. Equal symmetrical. No cords. Nontender. Patient is awake alert no focal motor deficits.] Medical Decision Making [ ] Other additions or changes: [None] History & Record Review Discussion w/independent historian: Patient and Family () Additional record(s) reviewed:: Prior inpatient record, Prior outpatient record, Prior ED visit, Prior labs and Other Lab Data Attestation: I reviewed the patient's lab results. Lab results narrative: CBC shows a white count of 6. H&H 12.2 at 37. Platelets 170. Electrolytes show a sodium 135. Potassium 3.4. Gap 6. BUN of 15 creatinine 1.46 which is around his baseline. Troponin 8. BNP 264. Chest x-ray chronic changes no effusion. No failure. Thank you Labs: Laboratory Results - last 24 hr 03/28/24 03/28/24 12:10 12:30 WBC 6.0 RBC 3.69 L Hgb 12.2 L Hct 37.1 L MCV 100.5 H MCH 33.1 H MCHC 32.9 RDW Std Deviation 49.8 H RDW Coeff of Janes 13.3 Plt Count 170 MPV 9.2 Immature Gran % (Auto) 0.500 Neut % (Auto) 69.6 Lymph % (Auto) 12.7 L [place] % (Auto) 15.4 H Eos % (Auto) 1.3 Baso % (Auto) 0.5 Absolute Neuts (auto) 4.2 Absolute Lymphs (auto) 0.76 L Nucleated RBC % 0 Sodium 135 L Potassium 3.4 L Chloride 97 L Carbon Dioxide 32.0 Anion Gap 6 BUN 15 Creatinine 1.46 H Estim Creat Clear Calc 51.61 Est GFR (MDRD) Af Amer 60 Est GFR (MDRD) Non-Af 50 L BUN/Creatinine Ratio 10.3 Glucose 123 H Calcium 9.0 Troponin I High Sens 28 B-Natriuretic Peptide 264.8 H Radiography Chest X-Ray - ED: Normal, Heart, Lungs, Mediastinum, Bony Structures, No Acute Disease and Chronic Changes Diagnostic Testing: Clinical Impression(s) from Imaging Studies Chest X-Ray 03/28/24 12:35 IMPRESSION: Prior aortic valvular replacement and sternotomy again noted. Stable right hemidiaphragm elevation. No evidence of pulmonary edema. Lungs appear clear of acute disease, and unchanged. No pleural effusion or pneumothorax is evident. The cardiomediastinal silhouette is stable, without evidence of cardiomegaly. Reading Location: [address] Chest x-ray, 2 views, interpreted by myself and radiologist. Shows prior sternotomy with sternal wires. Aortic valve replacement. No effusions. No pulmonary edema or failure. Chronic changes. Discharge Plan Triage Chief Complaint: Edema ED Midlevel Provider: Aldo Javier ED Provider: Clay Douglass Dx/Rx/DC Orders Clinical Impression: Mild peripheral edema Instructions: ED Peripheral Edema, Bilateral Prescriptions: No Action escitalopram oxalate [Lexapro] 20 mg tablet 20 mg PO DAILY omeprazole 20 mg capsule,delayed release(DR/EC) 20 mg PO DAILY PRN (Reason: heartburn) acetaminophen 500 mg tablet 500 mg PO Q6H PRN cholecalciferol (vitamin D3) 25 mcg (1,000 unit) tablet 25 mcg PO QDAY lisinopril 20 mg tablet 40 mg PO QDAY amlodipine 5 mg tablet 5 mg PO QDAY Qty: 90 3RF memantine 10 mg tablet 10 mg PO BID atorvastatin 20 mg tablet 20 mg PO QHS 90 Days Qty: 90 3RF potassium chloride 8 mEq tablet extended release 8 meq PO DAILY Qty: 90 3RF Xarelto 20 mg tablet 20 mg PO QPM Qty: 30 11RF furosemide [Lasix] 40 mg tablet 40 mg PO BID Qty: 180 3RF metoprolol succinate [Toprol XL] 50 mg tablet extended release 24 hr 50 mg PO DAILY Qty: 90 3RF Primary Care Provider: Phoebe Beltran Referrals: glen [Other] Phoebe Beltran MD [Primary Care Provider] - Darinel Valiente MD [Med Staff - Active Staff] - As soon as possible Activity Restrictions/Additional Instructions: Continue your current medications. Continue your Lasix 40 mg twice a day. 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 We spoke with their office today to ensure close follow-up. Return to emergency department if you are feeling worse. Print Language: Hungarian Disposition Disposition: Home, Self Care
[2024-03-28 12:32] LABS: Absolute Lymphocyte Count 0.76 X10^3/uL (0.83-4.51); Absolute Neutrophil Count 4.2 X10^3/uL (2.0-7.7); Basophil# 0.03 X10^3/uL; Basophil% 0.5 % (0-1); Eosinophil# 0.08 X10^3/uL; Eosinophils% 1.3 % (0-5); Hematocrit 37.1 % (40-54); Hemoglobin 12.2 g/dL (13.0-16.5); Lymphocyte # 0.76 X10^3/ul (0.83-4.51); Lymphocyte % 12.7 % (19-41); Mean Corp Hgb Conc 32.9 g/dL (32-36); Mean Corpuscular Hgb 33.1 pg (27.0-32.0); Mean Corpuscular Volume 100.5 fL (80-94); Mean Platelet Vol. 9.2 fl (6.2-12.0); Monocyte# 0.92 X10^3/uL; Monocyte% 15.4 % (0-10); NRBC Flagged by Analyzer 0 % (0-5); Neutrophil # 4.15 X10^3/uL (2.7-7.7); Neutrophil % 69.6 % (47-70); Platelet Count 170 K/mm3 (150-450); RBC Distribution Width CV 13.3 % (11.6-14.6); RBC Distribution Width SD 49.8 fl (35.1-43.9); Red Blood Count 3.69 M/mm3 (4.6-6.2)
[2024-03-28 12:33] VITALS: BMI 33.5
--- NOTE | 2024-03-28 12:35 | RAD_ITS ---
PROCEDURE: CHEST PA AND LATERAL REASON FOR EXAM: Shortness of breath. TECHNIQUE: Frontal and lateral views of the chest. COMPARISON: Chest x-ray 11/08/2021. RAD/Chest PA and Lateral IMPRESSION: Prior aortic valvular replacement and sternotomy again noted. Stable right hemidiaphragm elevation. No evidence of pulmonary edema. Lungs appear clear of acute disease, and unchanged. No pleural effusion or pneumothorax is evident. The cardiomediastinal silhouette is stable, without evidence of cardiomegaly. Reading Location: [id number]
[2024-03-28 12:38] LABS: Anion Gap 6 (5-15); BUN 15 mg/dL (7-18); BUN/Creat Ratio 10.3 RATIO (10-20); Chloride 97 mmol/L (98-107); Creatinine, Serum 1.46 mg/dL (0.70-1.30); EST Glomerular Filtration Rate 50 mL/min (>60); Est Glom Filt Rate - Afr Amer 60 mL/min (>60); Estimated Creatinine Clearance 51.61 ml/min; Glucose 123 mg/dL (74-106); Potassium 3.4 mmol/L (3.5-5.1); Sodium Level 135 mmol/L (136-145)
[2024-03-28 12:59] LABS: BNP,B-Type NATRIURETIC PEPTIDE 264.8 pg/mL (0-100)
[2024-03-28 13:04] LABS: Troponin-I HS 28 pg/mL (3.0-78.0)
[2024-03-28 13:51] VITALS: BP 144/85; PULSE 60; O2SAT 95
[2024-03-28 14:13] VITALS: O2SAT 94
[2024-03-28 15:09] VITALS: BP 149/93; PULSE 68; RESP 16; TEMP 36.6; O2SAT 98
== END 2024-03-28 15:16 | disposition home or self-care (01) ==
PROVIDERS: Nurse Practitioner; Emergency Provider Emergency Medicine; PCP Internal Medicine; Visit Provider Emergency Medicine
DX: R60.0 Localized edema (principal); I11.0 Hypertensive heart disease with heart failure; I50.32 Chronic diastolic (congestive) heart failure; I48.19 Other persistent atrial fibrillation; E11.9 Type 2 diabetes mellitus without complications; I25.10 Atherosclerotic heart disease of native coronary artery without angina pectoris; Z95.0 Presence of cardiac pacemaker; Z95.2 Presence of prosthetic heart valve; Z79.01 Long term (current) use of anticoagulants; E78.5 Hyperlipidemia, unspecified
CPT/HCPCS: 71046; 80048; 83880; 84484; 85025; 93005; 99283; A4216

== ENCOUNTER → 2024-05-14 | Outpatient (CLI) | payer MEDICARE, OTHER, SELFPAY ==
--- NOTE | 2024-05-14 14:44 | ECHOD_ITS ---
Reason For Study Reason For Study: EVALUATE , LV FUNCTION Procedure This was a 2D Doppler, Color Flow transthoracic echocardiogram. Exam performed in department. Left Ventricle Normal LV size. Moderate concentric left ventricular hypertrophy. Left ventricular systolic function is normal. The left ventricular ejection fraction is 60 %. Stage 3 diastolic dysfunction. No regional wall motion abnormalities noted. Right Ventricle Normal RV size. ICD or pacer leads identified within the right ventricle. Normal systolic function. Atria The left atrium is mildly enlarged. The right atrium is mildly enlarged. Mitral Valve Normal mitral valve. Tricuspid Valve Normal tricuspid valve. Mild to moderate (1-2+) tricuspid valve insufficiency. Pulmonary artery systolic pressure is 42 mmHg. Aortic Valve Peak aortic valve gradient 72 mmHg. Mean aortic valve gradient 44 mmHg. Bioprosthetic aortic valve. Pulmonic Valve Normal pulmonic valve. Great Vessels Normal aortic root. The pulmonary artery is normal size. Normal inferior vena cava. Pericardium/Pleural No pericardial effusion. MMode/2D Measurements & Calculations LVIDd: 4.5 cm IVSd: 1.5 cm LVOT diam: 2.0 cm LVIDs: 3.1 cm LVPWd: 1.5 cm LVOT area: 3.2 cm2 RVDd: 3.9 cm FS: 29.6 % Ao root diam: 3.4 cm LAV(MOD-bp): 66.6 ml LVAd ap4: 26.6 cm2 LAV(MOD-bp) Indexed: 30.4 ml/m2 LVLd ap4: 8.3 cm LAV(MOD-sp2): 67.8 ml EDV(MOD-sp4): 70.2 ml LAV(MOD-sp4): 65.8 ml EDV(sp4-el): 72.9 ml LVAs ap4: 16.4 cm2 LVLs ap4: 7.3 cm ESV(MOD-sp4): 30.9 ml ESV(sp4-el): 31.2 ml EF(MOD-sp4): 55.9 % EF(sp4-el): 57.2 % SV(MOD-sp4): 39.3 ml SV(sp4-el): 41.7 ml LA A4 area: 23.6 cm2 SI(MOD-sp4): 17.9 ml/m2 LA dimension(2D): 4.3 cm RA A4 area: 23.7 cm2 TAPSE: 1.9 cm Time Measurements MV dec time: 0.17 sec Doppler Measurements & Calculations MV E max estevan: 98.5 cm/sec Lat Peak E' [place]: 11.2 cm/sec Med Peak E' [place]: 7.7 cm/sec MV A max estevan: 26.7 cm/sec E/E' lat: 8.8 E/E' med: 12.8 MV E/A: 3.7 Ao V2 max: 425.1 cm/sec LV V1 max: 110.8 cm/sec SV(LVOT): 80.1 ml Ao max P.3 mmHg LV V1 max P.0 mmHg Ao V2 mean: 317.5 cm/sec LV V1 mean P.6 mmHg Ao mean P.1 mmHg LV V1 mean: 74.5 cm/sec Ao V2 VTI: 94.8 cm LV V1 VTI: 24.8 cm AV (velocity ratio): 0.26 JACKELINE(I,D): 0.85 cm2 JACKELINE(V,D): 0.84 cm2 PA V2 max: 111.3 cm/sec TR max estevan: 308.2 cm/sec TR max P.0 mmHg ECHO/Echo Complete Interpretation Summary Normal LV size. Left ventricular systolic function is normal. The left ventricular ejection fraction is 60 %. Moderate concentric left ventricular hypertrophy. Stage 3 diastolic dysfunction. The left atrium is mildly enlarged. The right atrium is mildly enlarged. Mean aortic valve gradient 44 mmHg. Significcant increase in aortic valve prosthesis Ordering Physician: Glenn Butler Referring Physician: CHARLEE PETERSON Performed By: Teresa Jay RDCS
[2024-05-14 17:09] LABS: Anion Gap 12 (5-15); BUN 23 mg/dL (4-19); BUN/Creat Ratio 14.7 RATIO (10-20); Calcium,Total 9.7 mg/dL (7.6-11.0); Carbon Dioxide 26.9 mmol/L (21.0-32.0); Chloride 96 mmol/L (98-108); Creatinine, Serum 1.58 mg/dL (0.70-1.20); EST Glomerular Filtration Rate 44 (>60); Glucose 103 mg/dL (70-99); Potassium 4.5 mmol/L (3.3-5.1); Sodium Level 135 mmol/L (133-145)
== END | disposition home or self-care (01) ==
PROVIDERS: PCP Internal Medicine; Referring Provider Nurse Practitioner Family; Visit Provider Nurse Practitioner Family
DX: I50.32 Chronic diastolic (congestive) heart failure (principal); I48.19 Other persistent atrial fibrillation; Z95.2 Presence of prosthetic heart valve; R06.09 Other forms of dyspnea; Z95.0 Presence of cardiac pacemaker
CPT/HCPCS: 36415; 80048; 93306

== ENCOUNTER 2024-05-22 18:53 | Emergency (ER) | payer MEDICARE, OTHER, SELFPAY ==
[2024-05-22] VITALS (8 sets, daily range): BP systolic 100–126; BP diastolic 72–83; PULSE 62–94; RESP 17–24; TEMP 36.8; O2SAT 95–100; BMI 34.4
--- NOTE | 2024-05-22 19:30 | EKG12_ITS ---
Test Reason : DYSRHYTHMIA Blood Pressure : */* mmHG Vent. Rate : 68 BPM Atrial Rate : 68 BPM P-R Int : * ms QRS Dur : 188 ms QT Int : 504 ms P-R-T Axes : * 58 51 degrees QTcB Int : 535 ms Ventricular-paced rhythm Abnormal ECG Confirmed by ISSAC VASQUEZ, OPHELIA ([id number]), editorial manager JEFRY LEVINE ([id number]) on 05/23/2024 8:05:06 AM Referred By: Irving Jones Confirmed By: OPHELIA DAVENPORT MD
--- NOTE | 2024-05-22 19:50 | RAD_ITS ---
EXAM: Chest PA and lateral CLINICAL HISTORY: Syncope COMPARISON: 03/28/2024 TECHNIQUE: AP and 2 lateral views of the chest, 3 total images FINDINGS: The lungs appear clear. Status post median sternotomy, aortic valve replacement and loop recorder again noted. The cardiac and mediastinal contours appear within limits. No pleural effusion. RAD/Chest PA and Lateral IMPRESSION: No evidence of acute traumatic injury. Reading Location: [id number]
--- NOTE | 2024-05-22 19:50 | EDS_ITS ---
HPI History of Present Illness Chief Complaint: Fall Narrative Narrative: Patient is a 79-year-old male with a past medical history of type 2 diabetes, hypertension, CHF, hyperlipidemia, on Xarelto who presents to the emergency department with a chief complaint of passing out. According the patient he fell earlier in the parking lot he continued to go to the bar and later he passed out again. He states that he does not know why this happened and cannot tell me much of the details. Patient states that he been feeling well prior to these episodes today. Patient CBC was reviewed and showed a white blood count of 7, hemoglobin is 13.3, plate count of 163. Patient's INR 1.5, PT of 18.2, sodium 130, potassium normal at 4.4, creatinine was 1.45 his underlying chronic kidney disease according to previous blood work. Patient's troponin was 29, EKG reviewed and showed ventricular paced rhythm with a rate of 68 bpm. Patient's pacemaker interrogated and showed no acute events. Delta troponin pending. Patient CT head and brain without contrast reviewed and showed right frontoparietal 6 mm subdural mixed density hemorrhage with some acute areas of hemorrhage resulting in 1 to 2 mm of right to left midline shift. Patient CT cervical spine reviewed and showed no fracture or malalignment. Patient chest x-ray reviewed by myself by radiology which showed no acute cardiopulmonary processes. I called [facility] For transfer for the traumatic subdural and spoke with who accept patient for transfer. Will attempt to set up critical care transport via helicopter. Patient be given Kcentra to reverse his Xarelto his took his dose this morning. Patient was notified he is agreeable to plan all question concerns answered. [facility] Medical History COVID-19 virus detected (12/2019) Nonobstructive atherosclerosis of coronary artery Bradycardia Sick sinus syndrome Secondary pulmonary arterial hypertension Type 2 diabetes mellitus Chronic diastolic (congestive) heart failure Osteoarthritis Persistent atrial fibrillation Bicuspid aortic valve Non-rheumatic aortic stenosis Essential (primary) hypertension Hyperlipidemia Home Medications ?Medication ?Instructions ?Recorded ?Last Taken ?Type atorvastatin 20 mg tablet 20 mg PO QHS CHOLESTEROL 90 days 04/03/20 Unknown Rx #90 tabs escitalopram oxalate 20 mg tablet 20 mg PO DAILY 05/24 Unknown History (Lexapro) rivaroxaban 20 mg tablet (Xarelto) 20 mg PO QPM #30 TA BLETS 06/06/23 Unknown Rx omeprazole 20 mg capsule,delayed 20 mg PO DAILY PRN he artburn 07/31/23 Unknown History release metoprolol succinate 50 mg 50 mg PO DAILY #90 tabs Unknown Rx tablet,extended release 24 hr (Toprol XL) memantine 10 mg tablet 10 mg PO BID 12/06/23 Unknow n History acetaminophen 500 mg tablet 500 mg PO Q6H PRN 02/01/24 Unknown History cholecalciferol (vitamin D3) 25 25 mcg PO QDAY 4 Unknown History mcg (1,000 unit) tablet lisinopril 20 mg tablet 40 mg PO QDAY 02/01/24 Unkno wn History dapagliflozin propanediol 10 mg 10 mg PO DAILY #30 tab s 04/05/24 Unknown Rx tablet (Farxiga) spironolactone 25 mg tablet 25 mg PO DAILY #90 tabs Unknown Rx furosemide 40 mg tablet (Lasix) 40 mg PO BID #180 tabs 05/03/24 Unknown Rx Allergy/AdvReac Type Severity Reaction Status Date / Time bisacodyl (From Dulcolax Allergy Intermediate Hives Verified 04/17/24 10:37 (bisacodyl)) oxycodone HCl (From Percocet) Allergy Other Verified 04/17/24 10:37 Family History Mother CVA (cerebral vascular accident) Diabetes Surgical History 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) History of hand surgery History of tonsillectomy and adenoidectomy History of appendectomy History of left heart catheterization (07/05/18) H/O aortic valve replacement (01/25/10) Social History Smoking Status: Never smoker alcohol intake: current alcohol intake frequency: 3 or more drinks per day Alcohol type: beer, wine and hard liquor details: Patient states 7-10 drinks per day substance use type: does not use caffeine: Yes (protein drink has 1 serving) ROS ROS ED ROS Narrative Constitutional: Denies headache, lightness, dizziness, fevers, chills Eyes: Denies change in vision double vision blurry vision Cardiovascular: Denies chest pain or palpitations Respiratory: Denies coughing wheezing shortness of breath Abdomen: Denies abdominal pain nausea vomit diarrhea : Denies any urinary Neurological: Denies numbness, weakness, tingling Musculoskeletal: Denies back pain Skin: Denies any rashes or lesions EXAM Physical Exam Narrative Exam Narrative: General: Patient is lying in bed rest comfortably did not appear to be in acute distress Head: Atraumatic, normocephalic Eyes: PERRL bilateral, EOMI bilateral, no conjunctival injection noted Neck: Soft, supple, trachea midline Cardiovascular: Regular rate and rhythm no murmurs gallops rubs noted Respiratory: Clear to auscultation bilaterally Abdomen: Soft, nondistended, nontender to palpation Musculoskeletal: All bony prominences palpated joints taken to full range of motion no pain elicited, no tense palpation the midline of the cervical, thoracolumbar spine Extremities: +5/5 strength noted in the bilateral upper and lower extremities, no pedal edema on exam Neurological: Patient follow commands knew that he was at [facility] year is 2024 Skin: Warm, dry, intact no rashes or lesions noted Const Vital Signs: 05/22/24 18:54 05/22/24 18:57 05/22/24 19:53 Temperature 98.3 F Temperature Source Oral Pulse Rate 94 Respiratory Rate 24 H Respiratory Effort Normal Non-Labored Respiratory Depth Normal Respiratory Pattern Normal Blood Pressure 100/72 Blood Pressure Mean 81 Pulse Ox 96 Oxygen Delivery Method Room Air Room Air Room Air 05/22/24 20:53 05/22/24 21:06 05/22/24 21:06 Temperature Temperature Source Pulse Rate 65 74 Respiratory Rate 23 H 21 H Respiratory Effort Respiratory Depth Respiratory Pattern Blood Pressure 115/83 H 116/75 Blood Pressure Mean 93 88 Pulse Ox 95 Oxygen Delivery Method Room Air Room Air MDM MDM MDM Narrative Medical decision making narrative: Patient is a 71-year-old male who presents to the emerged part with chief complaint of fall. On the differential diagnose includes but not limited to near syncope, syncope, intracranial hemorrhage, cervical spine fracture, ACS, cardiac arrhythmia, electrolyte abnormality. Once workup is obtained reviewed he will be reevaluated. Lab Data Labs: Laboratory Results - last 24 hr 05/22/24 19:50 WBC 7.0 RBC 3.81 L Hgb 13.3 Hct 37.9 L MCV 99.5 H MCH 34.9 H MCHC 35.1 RDW Std Deviation 47.3 H RDW Coeff of Janes 12.9 Plt Count 163 MPV 9.3 Immature Gran % (Auto) 0.700 Neut % (Auto) 69.0 Lymph % (Auto) 17.5 L Ray % (Auto) 9.0 Eos % (Auto) 3.1 Baso % (Auto) 0.7 Absolute Neuts (auto) 4.8 Absolute Lymphs (auto) 1.22 Nucleated RBC % 0 PT 18.2 H INR 1.5 APTT 33.7 Sodium 130 L Potassium 4.4 Chloride 93 L Carbon Dioxide 23.8 Anion Gap 13 BUN 31 H Creatinine 1.45 H Estim Creat Clear Calc 51.93 Est GFR (MDRD) Non-Af 49 L BUN/Creatinine Ratio 21.3 H Glucose 169 H Calcium 9.1 Troponin T High Sens 29 H Radiography Diagnostic Testing: Clinical Impression(s) from Imaging Studies Chest X-Ray 05/22/24 19:50 IMPRESSION: No evidence of acute traumatic injury. Reading Location: [facility] Brain CT 05/22/24 20:05 IMPRESSION: Right frontoparietal 6 mm subdural mixed density hemorrhage with some acute areas of hemorrhage resulting in 1-2 mm of [id number] midline shift. Findings discussed verbally by phone by myself with Dr. Jones at 8:42 p.m. 05/22/2024 Reading Location: [facility] Cervical Spine CT 05/22/24 20:05 IMPRESSION: Motion artifact. No fracture or malalignment. Reading Location: [facility] Discharge Plan Triage Chief Complaint: Fall ED Provider: Irving Jones Dx/Rx/DC Orders Clinical Impression: Traumatic subdural hematoma, Fall Prescriptions: No Action escitalopram oxalate [Lexapro] 20 mg tablet 20 mg PO DAILY omeprazole 20 mg capsule,delayed release(DR/EC) 20 mg PO DAILY PRN (Reason: heartburn) acetaminophen 500 mg tablet 500 mg PO Q6H PRN cholecalciferol (vitamin D3) 25 mcg (1,000 unit) tablet 25 mcg PO QDAY lisinopril 20 mg tablet 40 mg PO QDAY spironolactone 25 mg tablet 25 mg PO DAILY Qty: 90 3RF dapagliflozin propanediol [Farxiga] 10 mg tablet 10 mg PO DAILY Qty: 30 11RF memantine 10 mg tablet 10 mg PO BID atorvastatin 20 mg tablet 20 mg PO QHS 90 Days Qty: 90 3RF Xarelto 20 mg tablet 20 mg PO QPM Qty: 30 11RF metoprolol succinate [Toprol XL] 50 mg tablet extended release 24 hr 50 mg PO DAILY Qty: 90 3RF furosemide [Lasix] 40 mg tablet 40 mg PO BID Qty: 180 3RF Primary Care Provider: Phoebe Beltran Referrals: Phoebe Beltran MD [Primary Care Provider] - Print Language: Bermudian Disposition Disposition: DC/Tx to Another Type of HCF
[2024-05-22] MEDS: 0.9% Normal Saline (1000mL) 1,000 ML 999 ML IV (19:52)
--- NOTE | 2024-05-22 20:05 | CT_ITS ---
EXAM: Spine cervical without contrast CLINICAL HISTORY: Fall COMPARISON: 12/06/2023 TECHNIQUE: Noncontrast cervical spine CT with coronal and sagittal reformatted images FINDINGS: Motion artifact. No fracture or malalignment. No prevertebral soft tissue swelling. Multilevel spondylosis/discogenic change and facet degenerative changes with bilateral areas of foraminal narrowing again noted. Visualized apices appear clear. CT/Spine Cervical without Contras IMPRESSION: Motion artifact. No fracture or malalignment. Reading Location: [id number]
--- NOTE | 2024-05-22 20:05 | CT_ITS ---
EXAM: Brain/head without contrast CLINICAL HISTORY: Syncopal episode, fall COMPARISON: 12/06/2023 TECHNIQUE: Noncontrast head CT with coronal and sagittal reformatted images FINDINGS: There is now a right convexity extra-axial frontoparietal subdural heterogeneous collection with some high density consistent with areas of recent, acute hemorrhage measures up to 6 mm in maximum thickness. 1-2 mm of [id number] midline shift. No calvarial fracture. The ventricles appear within limits. Volume loss, atrophy. Mild visualized paranasal sinus mucoperiosteal thickening. No air-fluid level seen. Mastoids and orbits appear within limits. CT/Brain/Head without Contrast IMPRESSION: Right frontoparietal 6 mm subdural mixed density hemorrhage with some acute are as of hemorrhage resulting in 1-2 mm of [id number] midline shift. Findings discussed verbally by phone by myself with Dr. Jones at 8:42 p.m. Reading Location: [id number]
[2024-05-22 20:06] LABS: Absolute Lymphocyte Count 1.22 X10^3/uL (0.83-4.51); Absolute Neutrophil Count 4.8 X10^3/uL (2.0-7.7); Basophil# 0.05 X10^3/uL; Basophil% 0.7 % (0-1); Eosinophil# 0.22 X10^3/uL; Eosinophils% 3.1 % (0-5); Hematocrit 37.9 % (40-54); Hemoglobin 13.3 g/dL (13.0-16.5); Lymphocyte # 1.22 X10^3/ul (0.83-4.51); Lymphocyte % 17.5 % (19-41); Mean Corp Hgb Conc 35.1 g/dL (32-36); Mean Corpuscular Hgb 34.9 pg (27.0-32.0); Mean Corpuscular Volume 99.5 fL (80-94); Mean Platelet Vol. 9.3 fl (6.2-12.0); Monocyte# 0.63 X10^3/uL; NRBC Flagged by Analyzer 0 % (0-5); Neutrophil # 4.82 X10^3/uL (2.7-7.7); Platelet Count 163 K/mm3 (150-450); RBC Distribution Width CV 12.9 % (11.6-14.6); RBC Distribution Width SD 47.3 fl (35.1-43.9); Red Blood Count 3.81 M/mm3 (4.6-6.2)
[2024-05-22 20:17] LABS: International Normalized Ratio 1.5; Partial Thromboplast Time 33.7 Seconds (24.1-36.2); Prothrombin Time (Protime)PT. 18.2 SECONDS (11.7-14.9)
[2024-05-22 20:35] LABS: Anion Gap 13 (5-15); BUN 31 mg/dL (4-19); BUN/Creat Ratio 21.3 RATIO (10-20); Calcium,Total 9.1 mg/dL (7.6-11.0); Carbon Dioxide 23.8 mmol/L (21.0-32.0); Chloride 93 mmol/L (98-108); Creatinine, Serum 1.45 mg/dL (0.70-1.20); EST Glomerular Filtration Rate 49 (>60); Estimated Creatinine Clearance 51.93 ml/min (50-250); Glucose 169 mg/dL (70-99); Potassium 4.4 mmol/L (3.3-5.1); Sodium Level 130 mmol/L (133-145); Troponin T High Sensitivity 29 ng/L (<=22)
--- NOTE | 2024-05-22 20:53 | ED.RN ---
Called significant other to update on Pt being transferred.
[2024-05-22] MEDS: HUM PROTHROMBIN CPLX(PCC)-LANS 5,000 UNIT in Viaflex Bag 1 BAG 500 UNIT IV (21:55)
--- NOTE | 2024-05-22 22:18 | ED.RN ---
Care of Pt transferred to [facility] transport team.
== END 2024-05-22 22:20 | disposition other institution (70) ==
PROVIDERS: Emergency Provider Emergency Medicine; PCP Internal Medicine; Referring Provider Emergency Medicine; Visit Provider Emergency Medicine
DX: S06.5X0A Traumatic subdural hemorrhage without loss of consciousness, initial encounter (principal); I50.32 Chronic diastolic (congestive) heart failure; I13.0 Hypertensive heart and chronic kidney disease with heart failure and stage 1 through stage 4 chronic kidney disease, or unspecified chronic kidney disease; E11.22 Type 2 diabetes mellitus with diabetic chronic kidney disease; I25.10 Atherosclerotic heart disease of native coronary artery without angina pectoris; E78.5 Hyperlipidemia, unspecified; N18.9 Chronic kidney disease, unspecified; Z79.01 Long term (current) use of anticoagulants; W19.XXXA Unspecified fall, initial encounter
CPT/HCPCS: 70450; 71046; 72125; 80048; 84484; 85025; 85610; 85730; 93005; 93288; 96361; 96365; 99285; J7165

== ENCOUNTER 2024-07-08 09:54 | Day surgery (SDC) | payer MEDICARE, OTHER, SELFPAY ==
--- NOTE | 2024-07-08 09:58 | ECHOTEE_ITS ---
Reason For Study Reason For Study: Evaluate AVR Medication BERONICA probe 6VT-D (SN [id number]) passed without difficulty. No complications were noted. Cetacaine Topical Cheyney given X3 orally. Versed 2 mg given slow IVP. Fentanyl 50 mcg given slow IVP. Performed a rapid injection of agitated mix of 9 cc saline and 1cc air to assess for atrial septal defect. Left Ventricle Normal left ventricle. Left ventricular systolic function is normal. The left ventricular ejection fraction is 55 %. No regional wall motion abnormalities noted. Right Ventricle Normal RV size. Normal systolic function. Micra Present. Atria Bubble contrast study negative for right to left interatrial shunt. The left atrium is moderately enlarged. No thrombus is detected in the left atrial appendage. There is mild sponatenous contrast in the left atrium. Normal right atrium. Mitral Valve Normal mitral valve. Mild-Moderate (1-2+) eccentric mitral valve insufficiency. Tricuspid Valve Normal tricuspid valve. Aortic Valve Peak aortic valve gradient 57 mmHg. Mean aortic valve gradient 38 mmHg. Moderate to severe aortic stenosis. Bioprosthetic aortic valve. Only 1 leaflet of the bioprosthetic aortic valve is noted to be moving. Pulmonic Valve Normal pulmonic valve. Vessels Normal aortic root. Normal descending aorta. Spontaneous echo contrast noted in the descending aorta. The pulmonary artery is normal size. MMode/2D Measurements & Calculations LVOT diam: 2.1 cm LVOT area: 3.6 cm2 Doppler Measurements & Calculations Ao V2 max: 348.1 cm/sec LV V1 max: 129.0 cm/sec SV(LVOT): 103.3 ml Ao max P.6 mmHg LV V1 max P.7 mmHg Ao V2 mean: 271.6 cm/sec LV V1 mean P.1 mmHg Ao mean P.9 mmHg LV V1 mean: 96.5 cm/sec Ao V2 VTI: 84.8 cm LV V1 VTI: 29.0 cm AV (velocity ratio): 0.34 JACKELINE(I,D): 1.2 cm2 JACKELINE(V,D): 1.3 cm2 ECHO/Echo Transesophageal (BERONICA) Interpretation Summary Normal left ventricle. Left ventricular systolic function is normal. The left ventricular ejection fraction is 55 %. Bioprosthetic aortic valve. Only 1 leaflet of the bioprosthetic aortic valve is noted to be moving. Moderate to severe aortic stenosis. Mean aortic valve gradient 38 mmHg. Compared to the previous echocardiogram from a year ago the mean gradient acros s the bioprosthetic aortic valve is significantly increased. Ordering Physician: Glenn Butler Referring Physician: Glenn Butler Performed By: Milena Butler, HERBER, RVT
[2024-07-08 11:42] VITALS: BMI 31.9
--- NOTE | 2024-07-08 12:23 | PCM.CONS.C ---
Assessment & Plan Assessment/Plan (1) H/O aortic valve replacement: PLAN: Patient has a history of aortic valve replacement which is bioprosthetic and has demonstrated significant elevation in pressures due to the valve malfunctioning. The current valve is approximately 15 years old. A BERONICA was recommended and performed and demonstrated stenosis of the above and the cardiac catheterization will need to be performed to make sure that there is no coronary disease before the patient will be referred for reevaluation of the aortic valve. (2) History of permanent cardiac pacemaker placement: PLAN: Patient's status post permanent pacemaker implantation. Will continue follow-up as per usual protocol. (3) Persistent atrial fibrillation: PLAN: Patient has persistent atrial fibrillation and will continue with underlying anticoagulation. Patient has a Micra device in place (4) Essential (primary) hypertension: PLAN: Patient has a history of hypertension which is well-controlled on the current medical therapy and no changes will be made. HPI Consult Data Date of Consult: 07/08/24 HPI Narrative HPI Narrative: SVITLANA PARKER, is a 79 M who presents for an evaluation for a BERONICA as well as a cardiac catheterization. He is a gentleman with a history of minimal coronary artery disease, chronic persistent atrial fibrillation aortic valve replacement with a bioprosthetic valve in 2009. He also had symptomatic bradycardia and underwent a Micra permanent pacemaker implantation. He does have underlying atrial fibrillation. He has a history of hypertension pulmonary hypertension and hyperlipidemia. Over the last few weeks he apparently had been complaining of shortness of breath as well as weight gain. His natruretic peptide was noted to be elevated and he underwent an echocardiogram which demonstrated preserved ejection fraction but with an elevated trans aortic valve gradients. He is therefore being evaluated for possible prosthetic aortic valve stenosis. [facility] Medical History COVID-19 virus detected (12/2019) Nonobstructive atherosclerosis of coronary artery Bradycardia Sick sinus syndrome Secondary pulmonary arterial hypertension Type 2 diabetes mellitus Chronic diastolic (congestive) heart failure Osteoarthritis Persistent atrial fibrillation Bicuspid aortic valve Non-rheumatic aortic stenosis Essential (primary) hypertension Hyperlipidemia Home Medications ?Medication ?Instructions ?Recorded ?Last Taken ?Type atorvastatin 20 mg tablet 20 mg PO QHS CHOLESTEROL 90 days 04/03/20 Unknown Rx #90 tabs escitalopram oxalate 20 mg tablet 20 mg PO DAILY 05/25/23 Unknown History (Lexapro) rivaroxaban 20 mg tablet (Xarelto) 20 mg PO QPM #30 TABLETS 06/06/23 Unknown Rx omeprazole 20 mg capsule,delayed 20 mg PO DAILY PRN heartburn 07/31/23 Unknown History release metoprolol succinate 50 mg 50 mg PO DAILY #90 tabs 11/20/23 Unknown Rx tablet,extended release 24 hr (Toprol XL) memantine 10 mg tablet 10 mg PO BID 12/06/23 Unknown History acetaminophen 500 mg tablet 500 mg PO Q6H PRN fever or pain 02/01/24 Unknown History cholecalciferol (vitamin D3) 25 25 mcg PO QDAY 02/01/24 Unknown History mcg (1,000 unit) tablet lisinopril 20 mg tablet 40 mg PO QDAY 02/01/24 Unknown History dapagliflozin propanediol 10 mg 10 mg PO DAILY #30 tabs 04/05/24 Unknown Rx tablet (Farxiga) spironolactone 25 mg tablet 25 mg PO DAILY #90 tabs 04/05/24 Unknown Rx furosemide 40 mg tablet (Lasix) 40 mg PO DAILY 07/08/24 Unknown History Allergy/AdvReac Type Severity Reaction Status Date / Time bisacodyl (From Dulcolax Allergy Intermediate Hives Verified 04/17/24 10:37 (bisacodyl)) oxycodone HCl (From Percocet) Allergy Other Verified 04/17/24 10:37 Family History Mother CVA (cerebral vascular accident) Diabetes Surgical History 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) History of hand surgery History of tonsillectomy and adenoidectomy History of appendectomy History of left heart catheterization (07/05/18) H/O aortic valve replacement (01/25/10) Social History Smoking Status: Never smoker alcohol intake: current alcohol intake frequency: 3 or more drinks per day Alcohol type: beer, wine and hard liquor details: Patient states 7-10 drinks per day substance use type: does not use caffeine: Yes (protein drink has 1 serving) ROS Constitutional Constitutional: Denies fever(s) or weight loss Eyes Eyes: Reports systems reviewed and no addt'l complaints, except as documented ENT HEENT: Reports systems reviewed and no addt'l complaints, except as documented Cardiovascular Cardiovascular: Denies chest pain at rest, chest pain with activity, dyspnea at rest, dyspnea on exertion, edema, palpitations or paroxysmal nocturnal dyspnea Respiratory/Chest Respiratory/Chest: Denies dyspnea on exertion, productive cough, shortness of breath at rest or shortness of breath with exertion Gastrointestinal Gastrointestinal: Denies change in bowel habits, nausea, vomiting or weight changes Genitourinary Genitourinary: Denies difficulty urinating Musculoskeletal Musculoskeletal: Denies joint stiffness or muscle weakness Integumentary Integumentary: Denies lesions Neurologic Neurologic: Denies dizziness or syncope Psychiatric Psychiatric: Denies anxiety Endocrine Endocrinology: Denies excessive sweating or fatigue Hematologic/Lymphatic Hematologic/Lymphatic: Denies anemia Allergic/Immunologic Allergic/Immunologic: Denies seasonal rhinorrhea Physical Exam Const alert, oriented x3 and no apparent distress General Appearance: cooperative HEENT hearing grossly normal bilaterally Head and Scalp: atraumatic Eyes EOMs intact bilaterally Neck General: normal visual inspection Chest inspection of chest normal and palpation of chest normal Resp normal respiratory effort Auscultation: clear to auscultation bilaterally Cardio regular rate, regular rhythm, S1 normal heart sound and S2 normal heart sound Jugular Venous Distention: JVD GI normal to inspection, nondistended, normoactive bowel sounds Extremity normal capillary refill and no pedal edema Peripheral Pulses: Yes pulses 2+ throughout and femoral pulses present Skin no rashes or lesions noted Neuro oriented x3 and CN's II-XII intact bilaterally Psych Appearance: grossly normal and appropriate Risk Stratification Risk Stratification Applicable: No Objective Data Vital Signs: Weight: 223 lb Body Mass Index (BMI) 31.9 Cardiology Labs/Tests Rhythm: EKG: ECHO: Stress Test: Cardiac Cath: PCI: CT Surgery: Holter monitor: EPS: PPM: CXR: Chest CT Scan:
--- NOTE | 2024-07-08 13:52 | CL.D_ITS ---
Patient Name: SVITLANA PARKER Study Date: 07/08/2024 Performing: Darinel Valiente MD Ht: 70 inches 177.8 cm : 1945 Wt: 240.52 lbs 109.1 kg Age: 79 Gender: male BSA: 2.26 PROCEDURE(S) PERFORMED [id number])[facility] CLINICAL PROFILE AND INDICATIONS Indications: Valvular Disease Heart Failure: None Stress/Imaging Stress/Image Study Performed: No CAD Presentations: Other: valve stenosis CONCLUSIONS Nonobstructive coronary arteries. RECOMMENDATIONS Consider referral to tertiary care facility for evaluation of the bioprosthetic aortic valve for valve in valve procedure. DESCRIPTION OF PROCEDURE The patient arrived to the procedure lab. The risks and benefits of the procedure as well as a full description of our services here and current unavailability of surgical backup were fully explained to the patient and/or their significant other prior to the catheterization. The Timeout was completed, verifying the correct patient and procedure. The patient's procedural site was prepped and draped in the usual fashion. Local anesthetic was given subcutaneously to right radial region with Lidocaine 2%. Using a modified Seldinger technique, arterial access was obtained via the right radial artery, a 6Fr sheath was inserted. Left Coronary Artery selective angiography was performed in multiple views using a 5 Fr. 4.0 Midway catheter. Right Coronary Artery selective angiography was then performed in multiple views using a 5 Fr. 4.0 Midway catheter.The arterial sheath was pulled and a TR Band was applied for hemostasis CORONARY ANGIOGRAPHY DOMINANCE: Left Dominant LEFT HEART ASSESSMENT Left Ventricular Ejection Fraction: by Echo 55 % Normal LV wall motion Normal Left Ventricular systolic function LEFT MAIN: Angiographically normal LEFT ANTERIOR DESCENDING ARTERY: Mild luminal irregularities CIRCUMFLEX ARTERY: Mild luminal irregularities RAMUS: No significant disease noted RIGHT CORONARY ARTERY: No significant disease noted VALVE FINDINGS: Bioprosthetic aortic valve with moderately severe stenosis by echocardiographic evaluation. COMPLICATIONS No Complications PROCEDURE MEDICATIONS Fentanyl 50 mcg IV Versed 1 mg IV Oxygen: 2 L/min via nasal cannula Heparin given IA 07/08/2024 13:36:26 Verapamil 2.5mg,3000 units of Heparin given IA 07/08/2024 13:36:26 SUMMARY OF HEMODYNAMIC DATA Time AIR REST ECG 12:01:20 ECG 12:04:04 ECG 12:05:39 AO 117/80 (96) SA 13:41:06 Signed By Darinel Valiente MD On 07/08/2024 13:51:34 Darinel Valiente MD
== END 2024-07-08 16:08 | disposition home or self-care (01) ==
PROVIDERS: PCP Internal Medicine; Referring Provider Internal Medicine Cardiovascular Disease; Visit Provider Internal Medicine Cardiovascular Disease
DX: I35.0 Nonrheumatic aortic (valve) stenosis (principal); I11.0 Hypertensive heart disease with heart failure; I50.32 Chronic diastolic (congestive) heart failure; I48.19 Other persistent atrial fibrillation; E11.9 Type 2 diabetes mellitus without complications; Z79.01 Long term (current) use of anticoagulants; I25.10 Atherosclerotic heart disease of native coronary artery without angina pectoris; E78.5 Hyperlipidemia, unspecified; Z95.2 Presence of prosthetic heart valve; Z95.0 Presence of cardiac pacemaker
CPT/HCPCS: 93312; 93320; 93325; 93454; 99152; 99153; Q9967; A4216; C1769; C1894